=== PATIENT | male | born 1980 | race Two or more races ===

== ENCOUNTER 2018-06-26 17:29 | Emergency (ER) | payer SELFPAY ==
[~2018-06-26] VITALS: Ht 175.3 cm; Wt 81.6 kg
[2018-06-26 17:45] VITALS: BP 133/84
[2018-06-26] MEDS ORDERED: LIDOCAINE W/ EPINEPHRINE 2% INJ 20ML VIAL IJ ONE (19:30)
== END 2018-06-26 20:04 | disposition home or self-care (01) ==
LOC: ER 17:34
DX: L02.811 Cutaneous abscess of head [any part, except face] (principal)
CPT/HCPCS: 10060; 96372

== ENCOUNTER 2018-11-03 11:25 | Emergency (ER) | payer OTHER, MEDICAID ==
[~2018-11-03] VITALS: Ht 175.3 cm; Wt 81.6 kg
[2018-11-03 11:58] VITALS: BP 140/85
[2018-11-03] MEDS ORDERED: LIDOCAINE W/ EPINEPHRINE 2% INJ 20ML VIAL ONE (12:12)
[2018-11-03] MEDS ORDERED: LIDOCAINE W/ EPINEPHRINE 2% INJ 20ML VIAL IJ ONE (12:15)
[2018-11-03] MEDS ORDERED: cefTRIAXone SOD 1,000 MG VL IM ONE (12:45)
[2018-11-03] MEDS ORDERED: ACETAMINOPHEN/CODEINE#3 (300/30mg) TAB PO ONE (12:45)
== END 2018-11-03 13:21 | disposition home or self-care (01) ==
LOC: ER 11:25
DX: L02.811 Cutaneous abscess of head [any part, except face] (principal)
CPT/HCPCS: 10060; 96372; 99283; C1887; J0696

== ENCOUNTER 2019-04-01 04:11 | Emergency (ER) | payer OTHER, MEDICAID ==
[~2019-04-01] VITALS: Ht 175.3 cm; Wt 81.6 kg
[2019-04-01 05:35] LABS: Basophils # (auto) 0.1 uL; Basophils % (auto) 0.8 % (0.0-2.0); Eosinophils # (auto) 0.2 uL; Eosinophils % (auto) 2.6 % (0.0-7.0); Hematocrit 50.5 % (41.0-53.0); Hemoglobin 17.6 g/dL (13.5-17.5); Lymphocytes # (auto) 2.2 uL; Lymphocytes % (auto) 34.4 % (10.0-50.0); Mean Corpuscular Hemoglobin 32.1 pg (28.0-32.0); Mean Corpuscular Hgb Conc. 34.8 g/dL (32.0-36.0); Mean Corpuscular Volume 92.2 fL (80.0-100.0); Monocytes # (auto) 0.5 uL; Monocytes % (auto) 8.1 % (0.0-12.0); Neutrophils # (auto) 3.5 uL; Neutrophils % (auto) 54.1 % (37.0-80.0); Nucleated Red Blood Cells % 0.1 %; Platelet Count (auto) 233 10^3/uL (140-450); Red Blood Cells 5.47 10^6/uL (4.5-5.90); Red Cell Distribution Width 14.7 % (11.8-14.3); White Blood Cell 6.5 10^3/uL (4.4-10.8)
[2019-04-01 05:53] LABS: Anion Gap 7 (5-15); Blood Urea Nitrogen 9 mg/dL (7-18); Calcium 8.6 mg/dL (8.5-10.1); Carbon Dioxide 27 mmol/L (21-32); Chloride 109 mmol/L (98-107); Glucose 108 mg/dL (74-106); Potassium 3.8 mmol/L (3.5-5.1); Sodium 143 mmol/L (136-145)
[2019-04-01 05:55] LABS: BUN/Creatinine Ratio 10.1; GFR African American 123 mL/min; GFR Non-African American 102 mL/min
[2019-04-01 06:12] LABS: Alanine Aminotransferase 37 U/L (16-61); Alkaline Phosphatase 65 U/L (45-117); Aspartate Aminotransferase 30 U/L (15-37); Bilirubin, Total 0.2 mg/dL (0.2-1.0); Total Protein 7.4 g/dL (6.4-8.2)
[2019-04-01 07:55] VITALS: BP 127/86
[2019-04-01] MEDS ORDERED: SODIUM CHLORIDE 0.9% 1,000 ML IV ONE (08:00)
[2019-04-01] MEDS ORDERED: LORazepam 2MG/ML-1ML VIAL IV ONE (08:00)
[2019-04-01 09:41] LABS: Urine Bacteria FEW /hpf (None Seen); Urine Blood Negative /uL (Negative); Urine Mucus FEW (None Seen); Urine Specific Gravity 1.017 (1.001-1.035); Urine WBC <1 /hpf (0 - 3)
[2019-04-01 10:23] LABS: Amphetamine Screen, Urine NEGATIVE (NEGATIVE); Barbiturate Scree,Urine NEGATIVE (NEGATIVE); Benzodiazephine Screen, Urine NEGATIVE (NEGATIVE); Cannabinoid Screen, Urine POSITIVE (NEGATIVE); Cocaine Screen, Urine NEGATIVE (NEGATIVE); Opiate Scree,Urine NEGATIVE (NEGATIVE); Phencyclidine Screen, Urine NEGATIVE (NEGATIVE)
== END 2019-04-01 12:01 | disposition home or self-care (01) ==
LOC: EDBD 04:11 → ER 04:18
DX: F10.239 Alcohol dependence with withdrawal, unspecified (principal); F41.9 Anxiety disorder, unspecified; F12.10 Cannabis abuse, uncomplicated; F15.10 Other stimulant abuse, uncomplicated; Y90.9 Presence of alcohol in blood, level not specified
CPT/HCPCS: 36415; 80053; 80307; 80320; 81001; 83880; 84484; 85025; 93005; 96361; 96374; 99284; J2060; J7030

== ENCOUNTER → 2019-10-12 | Emergency (ER) | payer OTHER, MEDICAID ==
[~2019-10-12] VITALS: Ht 177.8 cm; Wt 84.8 kg
[2019-10-12 14:48] VITALS: BP 128/85
== END | disposition home or self-care (01) ==
LOC: ER 14:35
DX: S00.06XA Insect bite (nonvenomous) of scalp, initial encounter (principal); F17.210 Nicotine dependence, cigarettes, uncomplicated; W57.XXXA Bitten or stung by nonvenomous insect and other nonvenomous arthropods, initial encounter; Y93.89 Activity, other specified; Y92.89 Other specified places as the place of occurrence of the external cause; Y99.8 Other external cause status

== ENCOUNTER 2025-04-10 14:03 | Inpatient (IN) | payer MEDICARE, MEDICAID ==
[~2025-04-10] VITALS: Ht 170.2 cm; Wt 69.9 kg
--- NOTE | 2025-04-10 15:13 | ED.PDOC ---
GI ASSESSMENT HPI Comments 45-year-old male presents here with abdominal pain. He states it began 2 days ago reports positive vomiting diarrhea. Also reports, as it of cough cold runny nose. Denies any fevers. Patient is a very poor historian. Has significant mumbled speech unable to give very much history. He states it feels like his kidney stones. Points to his entire abdomen as area of the discomfort. Chief Complaint: Abdominal Pain Time Seen by MD: 15:11 Primary Care Provider: carlo Clayton Notes: Nurses Notes, Medications, Allergies Allergies: Coded Allergies: NO KNOWN ALLERGIES (Unverified , 06/26/18) Home Meds Reported Medications Bupropion Hcl (Bupropion Hcl Xl) 150 Mg Tab, 1 TAB PO QAM 04/10/25 Information Source: Patient Mode of Arrival: Ambulatory Timing: Days Duration: Since onset Prehospital treatment: None Vomitus: None Stool: Normal Severity: Moderate Recent: None Recent Hx of: None Pain Location: Diffuse Modifying Factors: Nothing Associated sign and symptoms: Abdominal Pain Past Medical History PAST MEDICAL HISTORY: Depression Surgical History: Denies all surgeries Family History Family History: Unknown Social History Smoker: Cigarettes, Less Than 1 Pack/Day Alcohol: Heavy Drugs: Marijuana, Methamphetamine Lives In: Home Constitutional: denies: chills, diaphoresis, fatigue, fever, malaise, sweats, weakness, others EENTM: denies: blurred vision, double vision, ear bleeding, ear discharge, ear drainage, ear pain, ear ringing, eye pain, eye redness, hearing loss, mouth pain, mouth swelling, nasal discharge, nose bleeding, nose congestion, nose pain, photophobia, tearing, throat pain, throat swelling, voice changes, others Respiratory: denies: cough, hemoptysis, orthopnea, SOB at rest, shortness of breath, SOB with excertion, stridor, wheezing, others Cardiovascular: denies: chest pain, dizzy spells, diaphoresis, Dyspnea on exertion, edema, irregular heart beat, left arm pain, lightheadedness, palpitations, PND, syncope, others Gastrointestinal: reports: abdominal pain; denies: abdomen distended, blood streaked bowels, constipated, diarrhea, dysphagia, difficulty swallowing, hematemesis, melena, nausea, poor appetite, poor fluid intake, rectal bleeding, rectal pain, vomiting, others Genitourinary: denies: burning, dysuria, flank pain, frequency, hematuria, incontinence, penile discharge, penile sore, pain, testicle pain, testicle swelling, urgency, others Neurological: denies: dizziness, fainting, headache, left sided numbness, left sided weakness, numbness, paresthesia, pre-existing deficit, right sided numbness, right sided weakness, seizure, speech problems, tingling, tremors, weakness, others Musculoskeletal: denies: back pain, gout, joint pain, joint swelling, muscle pain, muscle stiffness, neck pain, others Integumetry: denies: bruises, change in color, change in hair/nails, dryness, laceration, lesions, lumps, rash, wounds, others Allergic/Immunocompromised: denies: Difficulty Healing, Frequent Infections, Hives, Itching, others Hematologic/Lymphatic: denies: anemia, blood clots, easy bleeding, easy bruising, swollen glands, others Endocrine: denies: excessive hunger, excessive sweating, excessive thirst, excessive urination, flushing, intolerance to cold, intolerance to heat, unexplained weight gain, unexplained weight loss, others Psychiatric: denies: anxiety, bipolar disorder, depression, hopeless, panic disorder, schizophrenia, sleepless, suicidal, others All Other Systems: Reviewed and Negative Physical Exam Exam Comments Appears homeless, speaks and mumbled speech, easily agitated General Appearance: Mild Distress, Normal HEENT: Normal ENT Inspection, Pharynx Normal Neck: Full Range of Motion, Non-Tender, Normal, Normal Inspection Respiratory: Chest Non-Tender, Lungs Clear, No Accessory Muscle Use, No Respiratory Distress, Normal Breath Sounds Cardiovascular: No Edema, No Murmur, No Gallop, Normal Peripheral Pulses, Regular Rate/Rhythm Breast Exam: Deferred Gastrointestinal: No Organomegaly, No Pulsatile Mass, Normal Bowel Sounds, Soft, Other (Mild diffuse abdominal tenderness to palpation) Genitalia: Deferred Pelvic: Deferred Rectal: Deferred Extremities: No calf tenderness, Normal capillary refill, Normal inspection, Normal range of motion, Non-tender, No pedal edema Musculoskeletal : Apperance: Normal Neurologic: Alert, No Motor Deficits, Normal Mood, No Sensory Deficits, Speech Problem, Other (Easily agitated) Cerebellar Function: Normal Reflexes: Normal Skin: Dry, Normal Color, Warm Lymphatic: No Adenopathy Was a procedure done? Was a procedure done?: No GI differential Dx Differential Diagnosis: Bowel Obstruction, Gastritis/PUD, Gastroenteritis, Pancreatitis, Urinary Obstruction, UTI, Urolithiasis, Dehydration, Drug toxicity, Electrolyte Imbalance, Food Poisoning, Bacterial, Viral, Malnutrition, Ischemic Bowel, Kidney Stone X-Ray, Labs, Meds, VS Vital Signs Date Time Temp Pulse Resp B/P (MAP) Pulse Ox O2 Delivery O2 Flow Rate FiO2 04/10/25 14:10 98.8 80 18 145/90 99 98.8 Lab Test 04/10/25 17:04 04/10/25 15:07 Range/Units Lactic Acid Level 0.8 0.4-2.0 mmol/L White Blood Count 15.0 H 4.4-10.8 10^3/uL Red Blood Count 5.40 4.5-5.90 10^6/uL Hemoglobin 16.6 13.5-17.5 g/dL Hematocrit 48.7 41.0-53.0 % Mean Corpuscular Volume 90.2 80.0-100.0 fL Mean Corpuscular Hemoglobin 30.8 28.0-32.0 pg Mean Corpuscular Hemoglobin Concent 34.2 32.0-36.0 g/dL Red Cell Distribution Width 13.2 11.8-14.3 % Platelet Count 269 140-450 10^3/uL Mean Platelet Volume 9.1 6.9-10.8 fL Neutrophils (%) (Auto) 84.1 H 37.0-80.0 % Lymphocytes (%) (Auto) 7.1 L 10.0-50.0 % Monocytes (%) (Auto) 8.5 0.0-12.0 % Eosinophils (%) (Auto) 0.1 0.0-7.0 % Basophils (%) (Auto) 0.2 0.0-2.0 % Neutrophils # (Auto) 12.6 H 1.6-8.6 10 ^3/uL Lymphocytes # (Auto) 1.1 0.4-5.4 10 ^3/uL Monocytes # (Auto) 1.3 0-1.3 10 ^3/uL Eosinophils # (Auto) 0 0-0.8 10 ^3/uL Basophils # (Auto) 0 0-0.2 10 ^3/uL Nucleated Red Blood Cells 0.0 % Sodium Level 135 L 136-145 mmol/L Potassium Level 4.1 3.5-5.1 mmol/L Chloride Level 100 98-107 mmol/L Carbon Dioxide Level 26 20-31 mmol/L Anion Gap 9 5-15 Blood Urea Nitrogen 10 9-23 mg/dL Creatinine 0.87 0.700-1.30 mg/dL Glomerular Filtration Rate Calc 109 >90 mL/min BUN/Creatinine Ratio 11.5 10.0-20.0 Serum Glucose 122 H 74-106 mg/dL Calcium Level 9.4 8.7-10.4 mg/dL Total Bilirubin 1.2 H 0.2-1.0 mg/dL Aspartate Amino Transferase (AST) 23 13-40 U/L Alanine Aminotransferase (ALT) 21 7-40 U/L Alkaline Phosphatase 61 46-116 U/L Total Protein 7.7 5.7-8.2 g/dL Albumin 4.7 3.2-4.8 g/dL Lipase 23 12-53 U/L [place] [id number] Ph: [phone] DIAGNOSTIC IMAGING Diagnostic Imaging Report : [id number] Signed PATIENT: TAMARA CARTER ACCT: [id number] UNIT: [id number] : 1980 LOC: ER ROOM / BED: / AGE / SEX: 45 / M ADM STATUS: REG ER SERVICE [id number] ORDERING PHYSICIAN: EVELYN ECKERT MD PROCEDURE(s): ABPL - CT AB PEL WO CON-NO ORAL OR IV REASON: abd pain, ro kidney stone, ro sbo ORDER NUMBER(s): [id number], ACCESSION NUMBER(s): [id number] Exam: CT CT AB PEL WO CON-NO ORAL OR IV History: abd pain, ro kidney stone, ro sbo Comparison Study: None TECHNIQUE: Multidetector CT of the abdomen was performed from lung bases to pubic symphysis. Imaging was performed without IV contrast. Axial, coronal and sagittal multiplanar reformats were obtained from the axial data set by the technologist. Radiation Dose Information: CT Dose: CTDI volume is 7.52 mGy. Dose-length product is 469.11 mGy*cm FINDINGS: Evaluation of solid organs is limited due to lack of intravenous contrast use. Findings: Lung Bases: No acute or significant lung base finding. Normal heart size. No pleural or pericardial effusion. Liver: The liver is normal in size. No focal lesions. Gallbladder and Biliary Tree: Fluid around the gallbladder wall and mildly thickened gallbladder wall (5 mm). Spleen: Unremarkable Pancreas: The pancreas is grossly normal in appearance. Adrenal Glands: Unremarkable Kidneys: Punctate nonobstructing calculus right kidney Bladder: Grossly unremarkable for degree of distention. Bowel: The stomach is grossly normal in appearance. Small bowel and colon are normal in caliber and distribution. The appendix is not visualized; however, no secondary findings of acute appendicitis identified. Ascites: Absent Lymphadenopathy: No mesenteric, retroperitoneal or periportal lymphadenopathy. Abdominal Wall and Mesentery: Unremarkable. Vasculature: The visualized abdominal aorta is normal in size and caliber. Evaluation of abdominal and pelvic vessels is limited due to lack of intravenous contrast. Pelvic Organs: Unremarkable Musculoskeletal: No aggressive focal bony lesions, acute fractures or dislocation. Soft tissues: Unremarkable IMPRESSION: 1. Fluid and debris filled stomach. 2. No findings of bowel obstruction. Large stool burden throughout the colon 3. Punctate calculus right kidney no hydronephrosis 4. Thickened gallbladder wall with mildly distended gallbladder and fluid around the gallbladder. Gallbladder wall measures 5 mm. Consider gallbladder ultrasound for further evaluation. 5. 6-7 mm stool-filled rectum. Radiation optimization: All CT scans at this facility use at least one of these dose optimization techniques: automated exposure control mA and/or kV ad justment per patient size (includes targeted exams where dose is matched to clinical indication) or iterative reconstruction. ATED BY: GEORGE MOCK Jr., DO DICTATED DATE/TIME: 04/10/25 163 SIGNED BY: GEORGE MOCK Jr., SIGNED DATE/TIME: 04/10/25 1630 CC: 45-year-old male since here with abdominal pain. Patient is a very poor historian mumbles gets easily agitated with repeated questions, appears homeless. At this time patient points to his entire abdomen as the area pain. He has mild diffuse abdominal tenderness on my examination. It denies any alcohol or drug abuse however I reviewed his previous records he does have a history of polysubstance abuse. He states it feels like it is kidney stone. I have given him a urine cup. At this time I have ordered a CBC CMP, urinalysis as well as a CT abdomen pelvis for evaluation. For possible small bowel obstruction nephrolithiasis. I have written for some morphine Zofran and IV fluids for him. CBC has returned with a leukocytosis of 15, CMP demonstrates a elevated bilirubin of 1.2. Normal lipase. CT abdomen pelvis has returned with thickened gallbladder wall and fluid around the gallbladder. At this time I am concerned about cholecystitis. I discussed the case with Dr. Dougherty to see if this patient would be able to be taken care of at our hospital, he agreed we can admit here. At this time I have started the patient on Zosyn IV and surgical consult has been made to Dr. Chan. Hospitalist team has been contacted. Time of 1ST Reevaluation: 15:41 Reevaluation 1ST: Unchanged Patient Education/Counseling: Diagnosis, Treatment Family Education/Counseling: No Family Present SEPSIS Sepsis Screen Physician Orders Ct Ab Pel Wo Con-No Oral Or Iv (04/10/25 15:28) Urinalysis (04/10/25 15:28) Blood Culture (04/10/25 16:44) Sodium Chloride 0.9% (04/10/25 16:45) * Surgical Consult (04/10/25 ) Vital Signs Date Time Temp Pulse Resp B/P (MAP) Pulse Ox O2 Delivery O2 Flow Rate FiO2 04/10/25 14:10 98.8 80 18 145/90 99 98.8 Laboratory Tests Test 04/10/25 15:07 04/10/25 17:04 White Blood Count 15.0 10^3/uL (4.4-10.8) H Lactic Acid Level 0.8 mmol/L (0.4-2.0) Departure 1 Departure Time of Disposition: 16:47 Impression: Primary Impression: Cholecystitis Additional Impression: Leukocytosis Qualified Codes: D72.829 - Elevated white blood cell count, unspecified Disposition: 09 ADMITTED INPATIENT Condition: Fair Critical Care Note Critical Care Time?: No Stability Stability form required: No Heart Score Heart Score: Heart Score Response (Comments) Value History N/A 0 EKG N/A 0 Age N/A 0 Risk Factors N/A 0 Troponin N/A 0 Total 0 I personally scribed for EVELYN ECKERT MD ([email or web address]) on 04/10/25 at 15:13. Electronically submitted by Karen Snell ([email or web address]). I personally scribed for EVELYN ECKERT MD ([email or web address]) on 04/10/25 at 16:40. Electronically submitted by Karen Snell [email or web address]). EVELYN ECKERT MD Apr 10, 2025 15:13
[2025-04-10 15:29] LABS: Hematocrit 48.7 % (41.0-53.0); Hemoglobin 16.6 g/dL (13.5-17.5); Mean Corpuscular Hemoglobin 30.8 pg (28.0-32.0); Mean Corpuscular Volume 90.2 fL (80.0-100.0); Nucleated Red Blood Cells % 0.0 %
[2025-04-10 15:46] LABS: Alanine Aminotransferase 21 U/L (7-40); Albumin 4.7 g/dL (3.2-4.8); Alkaline Phosphatase 61 U/L (46-116); Anion Gap 9 (5-15); BUN/Creatinine Ratio 11.5 (10.0-20.0); Blood Urea Nitrogen 10 mg/dL (9-23); Calcium 9.4 mg/dL (8.7-10.4); Carbon Dioxide 26 mmol/L (20-31); Chloride 100 mmol/L (98-107); Lipase 23 U/L (12-53); Potassium 4.1 mmol/L (3.5-5.1); Total Protein 7.7 g/dL (5.7-8.2)
[2025-04-10 15:54] LABS: Bilirubin, Total 1.2 mg/dL (0.2-1.0); Glucose 122 mg/dL (74-106); Sodium 135 mmol/L (136-145)
--- NOTE | 2025-04-10 16:32 | DVH ---
Exam: CT CT AB PEL WO CON-NO ORAL OR IV History: abd pain, ro kidney stone, ro sbo Comparison Study: None TECHNIQUE: Multidetector CT of the abdomen was performed from lung bases to pubic symphysis. Imaging was performed without IV contrast. Axial, coronal and sagittal multiplanar reformats were obtained fr om the axial data set by the technologist. Radiation Dose Information: CT Dose: CTDI volume is 7.52 mGy. Dose-length product is 469.11 mGy*cm FINDINGS: Evaluation of solid organs is limited due to lack of intravenous contrast use. Findings: Lung Bases: No acute or significant lung base finding. Normal heart size. No pleural or pericardial effusion. Liver: The liver is normal in size. No focal lesions. Gallbladder and Biliary Tree: Fluid around the gallbladder wall and mildly thickened gallbladder wall (5 mm). Spleen: Unremarkable Pancreas: The pancreas is grossly normal in appearance. Adrenal Glands: Unremarkable Kidneys: Punctate nonobstructing calculus right kidney Bladder: Grossly unremarkable for degree of distention. Bowel: The stomach is grossly normal in appearance. Small bowel and colon are normal in caliber and d istribution. The appendix is not visualized; however, no secondary findings of acute appendicitis id entified. Ascites: Absent Lymphadenopathy: No mesenteric, retroperitoneal or periportal lymphadenopathy. Abdominal Wall and Mesentery: Unremarkable. Vasculature: The visualized abdominal aorta is normal in size and caliber. Evaluation of abdominal a nd pelvic vessels is limited due to lack of intravenous contrast. Pelvic Organs: Unremarkable Musculoskeletal: No aggressive focal bony lesions, acute fractures or dislocation. Soft tissues: Unremarkable IMPRESSION: 1. Fluid and debris filled stomach. 2. No findings of bowel obstruction. Large stool burden throughout the colon 3. Punctate calculus right kidney no hydronephrosis 4. Thickened gallbladder wall with mildly distended gallbladder and fluid around the gallbladder. Gal lbladder wall measures 5 mm. Consider gallbladder ultrasound for further evaluation. 5. 6-7 mm stool-filled rectum. Radiation optimization: All CT scans at this facility use at least one of these dose optimization te chniques: automated exposure control mA and/or kV adjustment per patient size (includes targeted exa ms where dose is matched to clinical indication) or iterative reconstruction.
[2025-04-10] MEDS ORDERED: PIPERACILLIN-TAZOB 3.375GM 100 ML IV ONE (16:45)
[2025-04-10] MEDS ORDERED: ACETAMINOPHEN 325 MG TAB PO PRN (17:30)
[2025-04-10] MEDS ORDERED: BUPR150T18 PO (17:31)
--- NOTE | 2025-04-10 17:38 | DVHHP2 ---
History of Present Illness Reason for Visit: Abdominal pain History of Present Illness A 45-year-old male with past medical history of depression, tobacco use, amphetamine use, and homelessness presents to the ED with abdominal pain. Patient reports abdominal pain associated with vomiting and diarrhea for the past two days. He states that the pain feels similar to his prior episodes with gallstones. He is alert and oriented but note that to be a somewhat poor historian. He denies chest pain, hematemesis, or melena. In the ER, CTA abdomen shows large stool burden throughout the colon, thickened gallbladder wall with mild distention, pericholecystic fluid, and gallbladder wall thickness measuring 5 mm. Past Medical History As stated in HPI Past Surgical History Denies Family History Reviewed, non-contributory to the management of this case. Past Social History Homeless Tobacco and amphetamine use Review of Systems Constitutional: No: Fever, Chills, Sweats, Weakness, Malaise, Other Eyes: No: Pain, Vision change, Conjunctivae inflammation, Eyelid inflammation, Other, Redness ENT: No: Ear pain, Ear discharge, Nose pain, Nose discharge, Nose congestion, Mouth pain, Mouth swelling, Throat pain, Throat swelling, Other Respiratory: No: Cough, Dry, Shortness of breath, SOB with excertion, Wheezing, Hemoptysis, Pleuritic Pain, Sputum, Wheezing, Other Cardiovascular: No: Chest Pain, Palpitations, Orthopnea, Paroxysmal Noc. Dyspnea, Edema, Lt Headedness, Other Gastrointestinal: Nausea, Vomiting, Abdominal Pain, Diarrhea; No: Constipation, Melena, Hematochezia, Other Genitourinary: No Dysuria, No Frequency, No Incontinence, No Hematuria, No Retention, No Other Musculoskeletal: No: other, neck pain, shoulder pain, arm pain, back pain, hand pain, leg pain, foot pain Skin: No: Rash, Lesions, Jaundice, Bruising, Other Allergies: Coded Allergies: NO KNOWN ALLERGIES (Unverified , 06/26/18) Exam Vital Signs Vital Signs Date Time Temp Pulse Resp B/P (MAP) Pulse Ox O2 Delivery O2 Flow Rate FiO2 04/10/25 14:10 98.8 80 18 145/90 99 98.8 General Appearance: Alert, Oriented X3, mild distress HEENT: Atraumatic, PERRLA Respiratory: Clear to auscultation, Normal air movement Cardiovascular: Regular rate, Normal S1, Normal S2 Abdominal: Normal bowel sounds, Soft, Other (Soft, diffusely tender in right upper quadrant, mild guarding, no rebound) Extremities: No clubbing, No cyanosis, No edema Skin: No rashes, No breakdown Neuro: Normal speech Psych/Mental Status: Mental status NL Labs/Xrays Labs Test 04/10/25 17:04 04/10/25 15:07 Range/Units White Blood Count 15.0 H 4.4-10.8 10^3/uL Red Blood Count 5.40 4.5-5.90 10^6/uL Hemoglobin 16.6 13.5-17.5 g/dL Hematocrit 48.7 41.0-53.0 % Mean Corpuscular Volume 90.2 80.0-100.0 fL Mean Corpuscular Hemoglobin 30.8 28.0-32.0 pg Mean Corpuscular Hemoglobin Concent 34.2 32.0-36.0 g/dL Red Cell Distribution Width 13.2 11.8-14.3 % Platelet Count 269 140-450 10^3/uL Mean Platelet Volume 9.1 6.9-10.8 fL Neutrophils (%) (Auto) 84.1 H 37.0-80.0 % Lymphocytes (%) (Auto) 7.1 L 10.0-50.0 % Monocytes (%) (Auto) 8.5 0.0-12.0 % Eosinophils (%) (Auto) 0.1 0.0-7.0 % Basophils (%) (Auto) 0.2 0.0-2.0 % Neutrophils # (Auto) 12.6 H 1.6-8.6 10 ^3/uL Lymphocytes # (Auto) 1.1 0.4-5.4 10 ^3/uL Monocytes # (Auto) 1.3 0-1.3 10 ^3/uL Eosinophils # (Auto) 0 0-0.8 10 ^3/uL Basophils # (Auto) 0 0-0.2 10 ^3/uL Nucleated Red Blood Cells 0.0 % Sodium Level 135 L 136-145 mmol/L Potassium Level 4.1 3.5-5.1 mmol/L Chloride Level 100 98-107 mmol/L Carbon Dioxide Level 26 20-31 mmol/L Anion Gap 9 5-15 Blood Urea Nitrogen 10 9-23 mg/dL Creatinine 0.87 0.700-1.30 mg/dL Glomerular Filtration Rate Calc 109 >90 mL/min BUN/Creatinine Ratio 11.5 10.0-20.0 Serum Glucose 122 H 74-106 mg/dL Calcium Level 9.4 8.7-10.4 mg/dL Total Bilirubin 1.2 H 0.2-1.0 mg/dL Aspartate Amino Transferase (AST) 23 13-40 U/L Alanine Aminotransferase (ALT) 21 7-40 U/L Alkaline Phosphatase 61 46-116 U/L Total Protein 7.7 5.7-8.2 g/dL Albumin 4.7 3.2-4.8 g/dL Lipase 23 12-53 U/L PROCEDURE(s): ABPL - CT AB PEL WO CON-NO ORAL OR IV REASON: abd pain, ro kidney stone, ro sbo ORDER NUMBER(s): [id number], ACCESSION NUMBER(s): [id number] Exam: CT CT AB PEL WO CON-NO ORAL OR IV History: abd pain, ro kidney stone, ro sbo Comparison Study: None TECHNIQUE: Multidetector CT of the abdomen was performed from lung bases to pubi c symphysis. Imaging was performed without IV contrast. Axial, coronal and sagittal multiplanar reformats were obtained from the axial data set by the technologist. Radiation Dose Information: CT Dose: CTDI volume is 7.52 mGy. Dose-length product is 469.11 mGy*cm FINDINGS: Evaluation of solid organs is limited due to lack of intravenous contrast use. Findings: Lung Bases: No acute or significant lung base finding. Normal heart size. No pleural or pericardial effusion. Liver: The liver is normal in size. No focal lesions. Gallbladder and Biliary Tree: Fluid around the gallbladder wall and mildly thickened gallbladder wall (5 mm). Spleen: Unremarkable Pancreas: The pancreas is grossly normal in appearance. Adrenal Glands: Unremarkable Kidneys: Punctate nonobstructing calculus right kidney Bladder: Grossly unremarkable for degree of distention. Bowel: The stomach is grossly normal in appearance. Small bowel and colon are normal in caliber and distribution. The appendix is not visualized; however, no secondary findings of acute appendicitis identified. Ascites: Absent Lymphadenopathy: No mesenteric, retroperitoneal or periportal lymphadenopathy. Abdominal Wall and Mesentery: Unremarkable. Vasculature: The visualized abdominal aorta is normal in size and caliber. Evaluation of abdominal and pelvic vessels is limited due to lack of intravenous contrast. Pelvic Organs: Unremarkable Musculoskeletal: No aggressive focal bony lesions, acute fractures or dislocation. Soft tissues: Unremarkable IMPRESSION: 1. Fluid and debris filled stomach. 2. No findings of bowel obstruction. Large stool burden throughout the colon 3. Punctate calculus right kidney no hydronephrosis 4. Thickened gallbladder wall with mildly distended gallbladder and fluid around the gallbladder. Gallbladder wall measures 5 mm. Consider gallbladder ultrasound for further evaluation. 5. 6-7 mm stool-filled rectum. SEPSIS Sepsis Screen Date sepsis recognized/suspect: Apr 10, 2025 Time Sepsis recognized/suspect: 0 Recent Procedure: No On Antibiotic Therapy: No Respiratory Rate >20: No Heart Rate >90: No Temp<36 C (96.8 F) or >38.3 C: No SBP <90 or MAP <65 mmHG: No New Acute Mental Status Change: No Is the patient on CPAP, BIPAP,: No Physician Orders Ct Ab Pel Wo Con-No Oral Or Iv (04/10/25 15:28) Urinalysis (04/10/25 15:28) Piperacillin-Tazob 3.375gm (Zosyn 3.375g (04/10/25 16:45) Blood Culture (04/10/25 16:44) Lactic Acid W/ Reflex Order (04/10/25 16:44) Sodium Chloride 0.9% (04/10/25 16:45) * Surgical Consult (04/10/25 ) Vital Signs Date Time Temp Pulse Resp B/P (MAP) Pulse Ox O2 Delivery O2 Flow Rate FiO2 04/10/25 14:10 98.8 80 18 145/90 99 98.8 Laboratory Tests Test 04/10/25 15:07 04/10/25 17:04 White Blood Count 15.0 10^3/uL (4.4-10.8) H Lactic Acid Level Pending Assessment/Plan Assessment/Plan # rule out acute cholecystitis # acute abdominal pain likely due to large to burden throughout the colon # diarrhea * Admit to medical surgical unit * Ultrasound gallbladder ordered * NPO * IV fluid * Rocephin, Zosyn # Polysubstance abuse * Counseled # hx of Depression * continue # homelessness * consider social work coordinator consult Plan of care discussed with patient Plan discussed with: Patient Date of Service: Apr 10, 2025 Billing Provider: GINO REESE Common Visit Codes: [id number] INP/OBS CARE (MOD) GINO REESE Apr 10, 2025 17:38
--- NOTE | 2025-04-10 18:19 | DVH ---
INDICATION: rule out cholecystitis TECHNIQUE: Multiple real-time sonographic images of the abdomen were obtained. COMPARISON: None FINDINGS: Hepatic parenchyma is echogenic consistent with steatosis. The liver measures 15.5 cm. No intrahepatic biliary ductal dilatation is noted. The gallbladder wall measures 0.43 cm and is thickened. Gallstones and sludge in the gallbladder. The common duct measures 0.42 cm and is unremarkable. No pericholecystic fluid is noted. Negative so nographic Cabrera's sign The right kidney measures 10.8 cm. No hydronephrosis. The pancreas is not well visualized due to obscuration from bowel gas. IMPRESSION: 1. 15.5 cm liver with increased hepatic echogenicity suggesting steatosis. 2. Gallstones sludge are noted in the gallbladder with thickened gallbladder wall 0.43 mm
[2025-04-10] MEDS: ONDANSETRON HCL 4 MG/2 ML VIAL IV ONE (20:36)
[2025-04-10] MEDS: MORPHINE SULFATE INJ 2 MG/ml SYRG IV PRN (20:37)
[2025-04-10] MEDS: PIPERACILLIN-TAZOB 3.375GM 100 ML IV SCH (20:38)
[2025-04-10] MEDS: SODIUM CHLORIDE 0.9% 1,000 ML IV ONE (20:38)
[2025-04-10] MEDS: MORPHINE SULFATE 4 MG/ML SYR/VIAL IV ONE (20:38)
[2025-04-10] MEDS: SODIUM CHLORIDE 0.9% 2,000 ML IV ONE (22:46)
[2025-04-10] MEDS: SODIUM CHLORIDE 0.9% 1,000 ML IV SCH (22:47)
[2025-04-11] VITALS (7 sets, daily range): BP systolic 122–137; BP diastolic 68–94; PULSE 61–83; RESP 15–18; TEMP 99–100.9; O2SAT 94–100
[2025-04-11] MEDS: PIPERACILLIN-TAZOB 3.375GM 100 ML IV SCH (02:26)
[2025-04-11 05:53] LABS: Hematocrit 47.8 % (41.0-53.0); Hemoglobin 16.5 g/dL (13.5-17.5); Mean Corpuscular Hemoglobin 31.3 pg (28.0-32.0); Mean Corpuscular Volume 90.5 fL (80.0-100.0); Nucleated Red Blood Cells % 0.0 %
[2025-04-11 06:29] LABS: Urine Protein, UAD Negative (Negative)
[2025-04-11 06:39] LABS: Alanine Aminotransferase 18 U/L (7-40); Albumin 4.3 g/dL (3.2-4.8); Alkaline Phosphatase 60 U/L (46-116); Anion Gap 11 (5-15); BUN/Creatinine Ratio 10.0 (10.0-20.0); Blood Urea Nitrogen 9 mg/dL (9-23); Calcium 9.1 mg/dL (8.7-10.4); Carbon Dioxide 24 mmol/L (20-31); Chloride 100 mmol/L (98-107); Potassium 4.2 mmol/L (3.5-5.1); Total Protein 7.2 g/dL (5.7-8.2)
[2025-04-11 06:41] LABS: Bilirubin, Total 1.6 mg/dL (0.2-1.0); Glucose 115 mg/dL (74-106); Sodium 135 mmol/L (136-145)
[2025-04-11 06:43] LABS: Cannabinoid Screen, Urine Neg (NEGATIVE); Opiate Scree,Urine Neg (NEGATIVE)
[2025-04-11 06:47] LABS: Amphetamine Screen, Urine Pos (NEGATIVE); Barbiturate Scree,Urine Neg (NEGATIVE); Benzodiazephine Screen, Urine Neg (NEGATIVE); Cocaine Screen, Urine Neg (NEGATIVE); Phencyclidine Screen, Urine Neg (NEGATIVE)
[2025-04-11 11:18] LABS: Hepatitis B Surface Antigen Negative (Negative); Hepatitis C Antibody Negative (Negative)
--- NOTE | 2025-04-11 11:55 | DVHPN2 ---
Subjective The patient seen and examined at bedside. Still nausea/and abdominal pain. Reviewed: Care Plan, H&P, Labs, Medications, Previous Orders, Radiology Changes from previous H/P or p: No Changes Eyes: No Pain, No Vision change, No Conjunctivae inflammation, No Eyelid inflammation, No Other, No Redness ENT: No Ear pain, No Ear discharge, No Nose pain, No Nose discharge, No Nose congestion, No Mouth pain, No Mouth swelling, No Throat pain, No Throat swelling, No Other Cardiovascular: No Chest Pain, No Palpitations, No Orthopnea, No Paroxysmal Noc. Dyspnea, No Edema, No Lt Headedness, No Other Respiratory: No Cough, No Dry, No Shortness of breath, No SOB with excertion, No Wheezing, No Hemoptysis, No Pleuritic Pain, No Sputum, No Other Gastrointestinal: Nausea, Vomiting, Abdominal Pain, Diarrhea; No Constipation, No Melena, No Hematochezia, No Other Genitourinary: No Dysuria, No Frequency, No Incontinence, No Hematuria, No Retention, No Other Musculoskeletal: No other, No neck pain, No shoulder pain, No arm pain, No back pain, No hand pain, No leg pain, No foot pain Skin: No Rash, No Lesions, No Jaundice, No Bruising, No Other Objective Vitals Vital Signs Date Time Temp Pulse Resp B/P (MAP) Pulse Ox O2 Delivery O2 Flow Rate FiO2 04/11/25 09:08 79 18 133/78 04/11/25 09:00 100.9 94 100.9 04/11/25 02:03 Room Air* 0 21 Intake/Output Intake and Output 04/11/25 07:00 Intake Total 0 ml Balance 0 ml Intake Oral 0 ml General Appearance: Alert, Oriented X3, Cooperative, No acute distress HEENT: Atraumatic, PERRLA, EOMI, Mucous membr. moist/pink Neck: Supple Lungs: Clear to auscultation, Normal air movement Cardiovascular: Regular rate, Normal S1, Normal S2, No murmurs, Gallops, Rubs Abdomen: Normal bowel sounds, Soft, No tenderness Neuro: Cranial nerves 3-12 NL Psych/Mental Status: Mental status NL Medications Current Medications Medications Dose Ordered Sig/Lorraine Route Start Time Stop Time Status Last Admin Dose Admin Ceftriaxone Sodium 50 ml @ 100 mls/hr DAILY@09 IV 04/10/25 17:30 Hold Sodium Chloride 1,000 ml @ 100 mls/hr Q10H IV 04/10/25 17:30 04/10/25 22:47 100 MLS/HR Acetaminophen/ Hydrocodone Bitart 1 tab Q4HP PRN PO 04/10/25 17:30 Ondansetron HCl 4 mg Q4HP PRN IV 04/10/25 17:30 Acetaminophen 650 mg Q6HP PRN PO 04/10/25 17:30 Morphine Sulfate 2 mg Q4HPRN PRN IV 04/10/25 17:30 04/11/25 09:08 2 MG Piperacillin Sod/ Tazobactam Sod 100 ml @ 25 mls/hr Q6HR IV 04/11/25 02:30 04/11/25 08:59 25 MLS/HR Laboratory Results Laboratory Tests 04/11/25 04:54 Chemistry Test 04/10/25 15:07 04/11/25 04:54 Albumin 4.7 g/dL (3.2-4.8) 4.3 g/dL (3.2-4.8) Calcium Level 9.4 mg/dL (8.7-10.4) 9.1 mg/dL (8.7-10.4) Total Protein 7.7 g/dL (5.7-8.2) 7.2 g/dL (5.7-8.2) Lipid panel Test 04/10/25 15:07 Lipase 23 U/L (12-53) LFT Test 04/10/25 15:07 04/11/25 04:54 Alanine Aminotransferase (ALT) 21 U/L (7-40) 18 U/L (7-40) Alkaline Phosphatase 61 U/L (46-116) 60 U/L (46-116) Aspartate Amino Transferase (AST) 23 U/L (13-40) 19 U/L (13-40) Total Bilirubin 1.2 mg/dL (0.2-1.0) H 1.6 mg/dL (0.2-1.0) H Urinalysis Test 04/11/25 06:00 Urine Color Light-yellow (Yellow) Urine Clarity Clear (Clear) Urine pH 6.5 (5.0-9.0) Urine Specific [place] 1.016 (1.001-1.035) Urine Protein Negative (Negative) Urine Ketones Trace (Negative) Urine Blood Negative /uL (Negative) Urine Nitrite Negative (Negative) Urine Bilirubin Negative (Negative) Urine Urobilinogen Normal mg/dL (Negative) Urine Leukocyte Esterase Negative /uL (Negative) Urine RBC 2 /hpf (0 - 3) Urine Microscopic WBC 1 /HPF (0-3) Urine Squamous Epithelial Cells Few /hpf (<5) Urine Bacteria None seen /hpf (None Seen) Urine Glucose Normal mg/dL (Normal) Labs and/or images reviewed: Labs reviewed by me Assessment/Plan Assessment/Plan # rule out acute cholecystitis # acute abdominal pain likely due to large to burden throughout the colon # diarrhea * Ultrasound gallbladder ordered * NPO * IV fluid * Rocephin, Zosyn # Polysubstance abuse * Counseled # hx of Depression * continue # homelessness * consider social work therapist consult Plan discussed with: Patient Date of Service: Apr 11, 2025 Billing Provider: FABIO VALENTIN MD Common Visit Codes: [id number] INP/OBS CARE(HIGH) FABIO VALENTIN MD Apr 11, 2025 11:55
[2025-04-11] MEDS: ACETAMINOPHEN IV 1000 MG/100ML (10MG/ML) IV ONE (17:15)
[2025-04-11 17:52] LABS: INR 1.16 (0.9-1.15); Partial Thromboplastin Time 33.7 SEC (24.5-34.5); Prothrombin Time 12.1 sec (9.3-11.8)
[2025-04-12] VITALS (8 sets, daily range): BP systolic 116–129; BP diastolic 73–89; PULSE 78–96; RESP 17–18; TEMP 97.6–98.8; O2SAT 95–97
[2025-04-12] MEDS: HYDROcodone-ACET 5/325MG TAB PO PRN (05:47)
[2025-04-12] MEDS: SUCCINYLCHOLINE CHLORIDE 20 MG/ML 10ML VIAL IV ONE (06:49)
[2025-04-12] MEDS: ROCURONIUM 10MG/ML 10ML VIAL IV ONE (06:49)
[2025-04-12] MEDS ORDERED: SODIUM CHLORIDE LOCK 10 ML ONE (07:03)
[2025-04-12] MEDS ORDERED: PROPOFOL 10 MG/ML 20 ML IV ONE (07:03)
[2025-04-12] MEDS ORDERED: KETAMINE 50mg/ML 1ml syringe ONE (07:03)
[2025-04-12] MEDS ORDERED: ONDANSETRON HCL 4 MG/2 ML VIAL ONE (07:03)
[2025-04-12] MEDS ORDERED: LIDOCAINE 1% INJ PF 5ML AMP ONE (07:03)
[2025-04-12] MEDS ORDERED: MIDAZOLAM HCL 2MG/2ML 2ml VIAL (1mg/ml) ONE (07:03)
[2025-04-12] MEDS ORDERED: fentaNYL CITRATE 100 MCG/2 ML VL ONE (07:03)
[2025-04-12] MEDS ORDERED: LIDOCAINE 2% TOPICAL JELLY 5 ML URJT TOP ONE (07:03)
[2025-04-12] MEDS ORDERED: HYDROmorphone HCL 2 MG/ML VL/or syr ONE (07:03)
[2025-04-12] MEDS: BUPIVACAINE W/ EPINEPH 0.5% MPF 30ML VIAL IJ ONE (07:05)
[2025-04-12] MEDS: KETOROLAC TROMETH 30 MG/ML 1ML VIAL IV ONE (07:15)
[2025-04-12] MEDS ORDERED: HYDROmorphone HCL 2 MG/ML VL/or syr IV PRN ×2 (07:15)
[2025-04-12] MEDS ORDERED: MORPHINE SULFATE INJ 2 MG/ml SYRG IV PRN (07:15)
[2025-04-12] MEDS ORDERED: MORPHINE SULFATE 4 MG/ML SYR/VIAL IV PRN (07:15)
[2025-04-12] MEDS ORDERED: METOCLOPRAMIDE HCL 5MG/ml INJ 2ml VIAL IV PRN (07:15)
--- NOTE | 2025-04-12 08:31 | DVH ---
Procedure: NM NM HIDA SCAN Exam Date: 04/11/2025 02:47 PM Clinical History: poss cholecystitis Comparison Study: US GALLBLADDER on DOS: 04/10/25 Nuclear Medicine Hepatobiliary Scan. Technique: Following the intravenous administration of 6 mCi of technetium 99m labeled Choletec multiple planar abdominal planar images were obtained in anterior projection in 5 minute intervals for45 minutes . Ri ght lateral images were obtained at 45 minutes after injection. Findings: The liver appears grossly normal in size. There is no abnormal persistence of the cardiac or blood po ol activity. There is excretion of activity into the small bowel. Gallbladder not visualized Impression: Gallbladder not visualized consistent with acute cholecystitis.
--- NOTE | 2025-04-12 11:42 | DVHPN2 ---
Subjective The patient seen and examined at bedside. Still nausea/and abdominal pain. Reviewed: Care Plan, H&P, Labs, Medications, Previous Orders, Radiology Changes from previous H/P or p: No Changes Eyes: No Pain, No Vision change, No Conjunctivae inflammation, No Eyelid inflammation, No Other, No Redness ENT: No Ear pain, No Ear discharge, No Nose pain, No Nose discharge, No Nose congestion, No Mouth pain, No Mouth swelling, No Throat pain, No Throat swelling, No Other Cardiovascular: No Chest Pain, No Palpitations, No Orthopnea, No Paroxysmal Noc. Dyspnea, No Edema, No Lt Headedness, No Other Respiratory: No Cough, No Dry, No Shortness of breath, No SOB with excertion, No Wheezing, No Hemoptysis, No Pleuritic Pain, No Sputum, No Other Gastrointestinal: Nausea, Vomiting, Abdominal Pain, Diarrhea; No Constipation, No Melena, No Hematochezia, No Other Genitourinary: No Dysuria, No Frequency, No Incontinence, No Hematuria, No Retention, No Other Musculoskeletal: No other, No neck pain, No shoulder pain, No arm pain, No back pain, No hand pain, No leg pain, No foot pain Skin: No Rash, No Lesions, No Jaundice, No Bruising, No Other Objective Vitals Vital Signs Date Time Temp Pulse Resp B/P (MAP) Pulse Ox O2 Delivery O2 Flow Rate FiO2 04/12/25 09:00 98.8 96 18 116/81 (93) 97 98.8 04/11/25 02:03 Room Air* 0 21 Intake/Output Intake and Output 04/12/25 07:00 Intake Total 200 ml Output Total 400 ml Balance -200 ml Intake Oral 0 ml IV Total 200 ml Output Urine Total 400 ml # Voids 2 General Appearance: Alert, Oriented X3, Cooperative, No acute distress HEENT: Atraumatic, PERRLA, EOMI, Mucous membr. moist/pink Neck: Supple Lungs: Clear to auscultation, Normal air movement Cardiovascular: Regular rate, Normal S1, Normal S2, No murmurs, Gallops, Rubs Abdomen: Normal bowel sounds, Soft, No tenderness Neuro: Cranial nerves 3-12 NL Psych/Mental Status: Mental status NL Medications Current Medications Medications Dose Ordered Sig/Lorraine Route Start Time Stop Time Status Last Admin Dose Admin Ceftriaxone Sodium 50 ml @ 100 mls/hr DAILY@09 IV 04/10/25 17:30 Hold Sodium Chloride 1,000 ml @ 100 mls/hr Q10H IV 04/10/25 17:30 04/11/25 13:36 100 MLS/HR Acetaminophen/ Hydrocodone Bitart 1 tab Q4HP PRN PO 04/10/25 17:30 04/12/25 05:47 1 TAB Ondansetron HCl 4 mg Q4HP PRN IV 04/10/25 17:30 Acetaminophen 650 mg Q6HP PRN PO 04/10/25 17:30 Morphine Sulfate 2 mg Q4HPRN PRN IV 04/10/25 17:30 04/12/25 01:23 2 MG Piperacillin Sod/ Tazobactam Sod 100 ml @ 25 mls/hr Q6HR IV 04/11/25 02:30 04/12/25 05:47 25 MLS/HR Laboratory Results Laboratory Tests 04/11/25 04:54 Coagulation Test 04/11/25 17:00 Prothrombin Time 12.1 sec (9.3-11.8) H Prothrombin Time INR 1.16 (0.9-1.15) H Activated Partial Thromboplast Time 33.7 SEC (24.5-34.5) Urinalysis Test 04/11/25 06:00 Urine Color Light-yellow (Yellow) Urine Clarity Clear (Clear) Urine pH 6.5 (5.0-9.0) Urine Specific [place] 1.016 (1.001-1.035) Urine Protein Negative (Negative) Urine Ketones Trace (Negative) Urine Blood Negative /uL (Negative) Urine Nitrite Negative (Negative) Urine Bilirubin Negative (Negative) Urine Urobilinogen Normal mg/dL (Negative) Urine Leukocyte Esterase Negative /uL (Negative) Urine RBC 2 /hpf (0 - 3) Urine Microscopic WBC 1 /HPF (0-3) Urine Squamous Epithelial Cells Few /hpf (<5) Urine Bacteria None seen /hpf (None Seen) Urine Glucose Normal mg/dL (Normal) Microbiology Microbiology Date/Time Source Procedure Growth Status 04/10/25 17:04 Blood Blood Culture - Preliminary NO GROWTH AFTER 24 HOURS OF INCUBATION. Resulted Labs and/or images reviewed: Labs reviewed by me Assessment/Plan Assessment/Plan # acute cholecystitis # acute abdominal pain likely due to large to burden throughout the colon # diarrhea * Ultrasound gallbladder ordered * NPO * IV fluid * Rocephin, Zosyn # Polysubstance abuse * Counseled # hx of Depression * continue # homelessness * consider high school social studies tutor consult * Continuing current management. Waiting for surgeon. Hopefully patient had surgery today. This medical document was created using an electronic medical record system with [employer] direct computerized dictation system. Although this document has been carefully reviewed, there may still be some phonetic and typographical errors. These areas are purely typographical due to imperfections of the software programs, and do not reflect any compromise in the patient's medical care. Plan discussed with: Patient Date of Service: Apr 12, 2025 Billing Provider: FABIO VALENTIN MD Common Visit Codes: [id number] INP/OBS CARE(HIGH) FABIO VALENTIN MD Apr 12, 2025 11:42
--- NOTE | 2025-04-12 14:36 | DVHINCON2 ---
Consultation - Surgical Date Seen: Apr 12, 2025 Referring Physician Reason for Consultation Acute cholecystitis History of Present Illness History of Present Illness 45 yo M who presented yesterday 04/11 to the ED with RUQ, that is associated with nausea and vomiting. Pain started two days ago. States that he had an episode like this, several yrs ago while in [place]. At that time he was admitted to the hospital and an endoscopy was done. Pt is unclear on the reasons for the endoscopy. Pt denies: fevers, chills, acholic stools or darkening of urine. Last took meth 2 days ago. Currently NPO. Denies any chronic medications. Past Medical/Surgical History Past Medical/Surgical History Endoscopy for unclear reason Family and Social History Family and Social History Meth and Marijuna Alcohol occasional TOB daily, several cigs Allergies and medications Allergies: Coded Allergies: NO KNOWN ALLERGIES (Unverified , 06/26/18) Home Meds Reported Medications Bupropion Hcl (Bupropion Hcl Xl) 150 Mg Tab, 1 TAB PO QAM 04/10/25 Review of systems Review of Systems: Not Done Examination Vital signs Vital Signs Date Time Temp Pulse Resp B/P (MAP) Pulse Ox O2 Delivery O2 Flow Rate FiO2 04/12/25 13:12 96 18 121/83 04/12/25 09:00 98.8 97 98.8 04/12/25 08:00 Room Air* 0 21 Medications Current Medications Medications (Trade) Dose Ordered Sig/Lorraine Route PRN Reason Start Time Stop Time Status Last Admin Metoclopramide HCl (Reglan Injection) 10 mg ONCE PRN IV NAUSEA / VOMITING 04/12/25 07:15 04/12/25 07:44 DC Hydromorphone HCl (Dilaudid Injection) 0.5 mg Q10M PRN IV SEVERE PAIN (7-10 PAIN SCALE) 04/12/25 07:15 04/12/25 07:56 DC Morphine Sulfate 2 mg Q4H PRN IV BREAKTHRU PAIN SCALE 7-10 04/12/25 07:15 04/12/25 11:16 DC Hydromorphone HCl (Dilaudid Injection) 0.25 mg Q10M PRN IV MODERATE PAIN (4-6 PAIN SCALE) 04/12/25 07:15 04/12/25 07:46 DC Morphine Sulfate 1 mg Q30M PRN IV SEVERE PAIN (7-10 PAIN SCALE) 04/12/25 07:15 04/12/25 09:16 DC Laboratory Labs Test 04/11/25 17:00 04/11/25 06:00 04/11/25 04:54 04/10/25 17:04 Range/Units Prothrombin Time 12.1 H 9.3-11.8 sec Prothrombin Time INR 1.16 H 0.9-1.15 Activated Partial Thromboplast Time 33.7 24.5-34.5 SEC Urine Color Light-yellow Yellow Urine Clarity Clear Clear Urine pH 6.5 5.0-9.0 Urine Specific [place] 1.016 1.001-1.035 Urine Protein Negative Negative Urine Ketones Trace Negative Urine Blood Negative Negative /uL Urine Nitrite Negative Negative Urine Bilirubin Negative Negative Urine Urobilinogen Normal Negative mg/dL Urine Leukocyte Esterase Negative Negative /uL Urine RBC 2 0 - 3 /hpf Urine Microscopic WBC 1 0-3 /HPF Urine Squamous Epithelial Cells Few <5 /hpf Urine Bacteria None seen None Seen /hpf Urine Glucose Normal Normal mg/dL Urine Opiates Screen Neg NEGATIVE Urine Fentanyl Screen Neg NEGATIVE Urine Barbiturates Screen Neg NEGATIVE Urine Phencyclidine Screen Neg NEGATIVE Urine Amphetamines Screen Pos NEGATIVE Urine Benzodiazepines Screen Neg NEGATIVE Urine Cocaine Screen Neg NEGATIVE Urine Cannabinoids Screen Neg NEGATIVE White Blood Count 18.2 H 4.4-10.8 10^3/uL Red Blood Count 5.28 4.5-5.90 10^6/uL Hemoglobin 16.5 13.5-17.5 g/dL Hematocrit 47.8 41.0-53.0 % Mean Corpuscular Volume 90.5 80.0-100.0 fL Mean Corpuscular Hemoglobin 31.3 28.0-32.0 pg Mean Corpuscular Hemoglobin Concent 34.5 32.0-36.0 g/dL Red Cell Distribution Width 13.4 11.8-14.3 % Platelet Count 251 140-450 10^3/uL Mean Platelet Volume 9.5 6.9-10.8 fL Neutrophils (%) (Auto) 85.4 H 37.0-80.0 % Lymphocytes (%) (Auto) 6.8 L 10.0-50.0 % Monocytes (%) (Auto) 7.5 0.0-12.0 % Eosinophils (%) (Auto) 0.1 0.0-7.0 % Basophils (%) (Auto) 0.2 0.0-2.0 % Neutrophils # (Auto) 15.6 H 1.6-8.6 10 ^3/uL Lymphocytes # (Auto) 1.2 0.4-5.4 10 ^3/uL Monocytes # (Auto) 1.4 H 0-1.3 10 ^3/uL Eosinophils # (Auto) 0 0-0.8 10 ^3/uL Basophils # (Auto) 0 0-0.2 10 ^3/uL Nucleated Red Blood Cells 0.0 % Sodium Level 135 L 136-145 mmol/L Potassium Level 4.2 3.5-5.1 mmol/L Chloride Level 100 98-107 mmol/L Carbon Dioxide Level 24 20-31 mmol/L Anion Gap 11 5-15 Blood Urea Nitrogen 9 9-23 mg/dL Creatinine 0.90 0.700-1.30 mg/dL Glomerular Filtration Rate Calc 108 >90 mL/min BUN/Creatinine Ratio 10.0 10.0-20.0 Serum Glucose 115 H 74-106 mg/dL Calcium Level 9.1 8.7-10.4 mg/dL Total Bilirubin 1.6 H 0.2-1.0 mg/dL Aspartate Amino Transferase (AST) 19 13-40 U/L Alanine Aminotransferase (ALT) 18 7-40 U/L Alkaline Phosphatase 60 46-116 U/L Total Protein 7.2 5.7-8.2 g/dL Albumin 4.3 3.2-4.8 g/dL Hepatitis B Surface Antigen Negative Negative Hepatitis C Antibody Negative Negative Lactic Acid Level 0.8 0.4-2.0 mmol/L Test 04/10/25 15:07 Range/Units Lipase 23 12-53 U/L Microbiology Date/Time Source Procedure Growth Status 04/10/25 17:04 Blood Blood Culture - Preliminary NO GROWTH AFTER 24 HOURS OF INCUBATION. Resulted Examination: GENERAL:Normal, HEENT:Normal (no scleral icterus), NECK:Normal, ABDOMEN:Abnormal (non distended, no scars, soft and depressible, small umbilical hernia approx 0.5cm, RUQ exquisite tenderness, no rebound, no guarding), SKIN:Normal (no jaundice) Problem List/Assessment/Plan Problems: (1) Cholecystitis Assessment and Plan Mr. Toro is a 45 yo M who presented with acute cholecystitis. US images seen and it shows GBW thickening >4mm, pericholecystic fluid, multiple large gallstones, CBD normal for age at 4mm. Ct was also seen and shows a small umbilical hernia, gallbladder with the previous findings. As far as liver enzymes pt has a mild elevation in Tbili at 1.6. Pt will definately benefit from lap juliano during this admission. Procedure, risks, benefits, complications and alternatives discussed with pt. Pt agrees with surgical plan. -OK for clear liquid diet -NPO at midnight -house calls nurse to OR tomorrow am -AM labs: CBC, CMP, liver function test, type and screen -Continue with Zosyn Plan discussed with Plan discussed with: Patient Visit Coding Surgery Date of Service if different f: Apr 12, 2025 Billing Provider: ALFREDO SANDHU MD Surgery Visit Codes: [id number] - INP CONSULT <20 MIN ALFREDO SANDHU MD Apr 12, 2025 14:36
[2025-04-13] VITALS (7 sets, daily range): BP systolic 111–123; BP diastolic 69–86; PULSE 64–102; RESP 16–20; TEMP 97.6–98.9; O2SAT 90–100
[2025-04-13 05:55] LABS: Hematocrit 44.3 % (41.0-53.0); Hemoglobin 15.2 g/dL (13.5-17.5); Mean Corpuscular Hemoglobin 30.8 pg (28.0-32.0); Mean Corpuscular Volume 90.0 fL (80.0-100.0); Nucleated Red Blood Cells % 0.1 %
[2025-04-13 06:16] LABS: Alanine Aminotransferase 15 U/L (7-40); Albumin 4.3 g/dL (3.2-4.8); Alkaline Phosphatase 72 U/L (46-116); Anion Gap 7 (5-15); BUN/Creatinine Ratio 8.6 (10.0-20.0); Calcium 8.8 mg/dL (8.7-10.4); Carbon Dioxide 28 mmol/L (20-31); Potassium 4.3 mmol/L (3.5-5.1); Total Protein 6.9 g/dL (5.7-8.2)
[2025-04-13 06:22] LABS: Bilirubin, Direct 0.5 mg/dL (<0.3); Bilirubin, Total 1.4 mg/dL (0.2-1.0); Blood Urea Nitrogen 8 mg/dL (9-23); Chloride 97 mmol/L (98-107); Glucose 124 mg/dL (74-106); Sodium 132 mmol/L (136-145)
[2025-04-13] MEDS: BUPIVACAINE 0.25% INJ 50ML VIAL ONE (07:14)
[2025-04-13] MEDS ORDERED: KETAMINE 50mg/ML 1ml syringe ONE (07:27)
[2025-04-13] MEDS ORDERED: HYDROmorphone HCL 2 MG/ML VL/or syr ONE (07:27)
[2025-04-13] MEDS ORDERED: MIDAZOLAM HCL 2MG/2ML 2ml VIAL (1mg/ml) ONE (07:27)
[2025-04-13] MEDS ORDERED: fentaNYL CITRATE 100 MCG/2 ML VL ONE ×2 (07:27→08:32)
[2025-04-13] MEDS ORDERED: GLYCOPYRROLATE 0.2 MG/ML 1ML VIAL ONE (07:28)
[2025-04-13] MEDS ORDERED: PROPOFOL 10 MG/ML 20 ML IV ONE (07:28)
[2025-04-13] MEDS ORDERED: SUGAMMADEX 200mg/2ml Vial (100MG/ML) IV ONE ×2 (07:28→08:41)
[2025-04-13] MEDS ORDERED: LIDOCAINE 2% (LOCAL ANESTH.) PF 5ml SDV ONE (07:28)
[2025-04-13] MEDS ORDERED: ROCURONIUM 10MG/ML 10ML VIAL IV ONE (07:28)
--- NOTE | 2025-04-13 07:44 | DVH ---
INDICATION: smoker, fever, pre-op TECHNIQUE: Frontal view of the chest. COMPARISON: None FINDINGS: . The heart and mediastinal contours are grossly unremarkable. There is no evidence of pleural disea se. The lungs are clear. The bony structures of the chest are intact without fracture. IMPRESSION: 1. No evidence of acute disease.
[2025-04-13] MEDS: ACETAMINOPHEN IV 100 ML IV ONE (09:52)
[2025-04-13] MEDS ORDERED: MORPHINE SULFATE 4 MG/ML SYR/VIAL IV PRN (11:15)
[2025-04-13] MEDS ORDERED: METOCLOPRAMIDE HCL 5MG/ml INJ 2ml VIAL IV PRN (11:15)
[2025-04-13] MEDS ORDERED: MORPHINE SULFATE INJ 2 MG/ml SYRG IV PRN (11:15)
[2025-04-13] MEDS ORDERED: HYDROmorphone HCL 2 MG/ML VL/or syr IV PRN ×2 (11:15)
[2025-04-13] MEDS: KETOROLAC TROMETH 30 MG/ML 1ML VIAL IV ONE (11:15)
--- NOTE | 2025-04-13 11:57 | DVHPN2 ---
Subjective The patient seen and examined at bedside. Still nausea/and abdominal pain. Status post cholecystectomy. Reviewed: Care Plan, H&P, Labs, Medications, Previous Orders, Radiology Changes from previous H/P or p: No Changes Eyes: No Pain, No Vision change, No Conjunctivae inflammation, No Eyelid inflammation, No Other, No Redness ENT: No Ear pain, No Ear discharge, No Nose pain, No Nose discharge, No Nose congestion, No Mouth pain, No Mouth swelling, No Throat pain, No Throat swelling, No Other Cardiovascular: No Chest Pain, No Palpitations, No Orthopnea, No Paroxysmal Noc. Dyspnea, No Edema, No Lt Headedness, No Other Respiratory: No Cough, No Dry, No Shortness of breath, No SOB with excertion, No Wheezing, No Hemoptysis, No Pleuritic Pain, No Sputum, No Other Gastrointestinal: Nausea, Vomiting, Abdominal Pain, Diarrhea; No Constipation, No Melena, No Hematochezia, No Other Genitourinary: No Dysuria, No Frequency, No Incontinence, No Hematuria, No Retention, No Other Musculoskeletal: No other, No neck pain, No shoulder pain, No arm pain, No back pain, No hand pain, No leg pain, No foot pain Skin: No Rash, No Lesions, No Jaundice, No Bruising, No Other Objective Vitals Vital Signs Date Time Temp Pulse Resp B/P (MAP) Pulse Ox O2 Delivery O2 Flow Rate FiO2 04/13/25 11:07 98.7 102 12 130/87 (101) 100 98.7 04/13/25 11:07 Mask 7.0 100 Intake/Output Intake and Output 04/13/25 07:00 Intake Total 1900 ml Balance 1900 ml Intake Oral 500 ml IV Total 1400 ml # Voids 3 General Appearance: Alert, Oriented X3, Cooperative, No acute distress HEENT: Atraumatic, PERRLA, EOMI, Mucous membr. moist/pink Neck: Supple Lungs: Clear to auscultation, Normal air movement Cardiovascular: Regular rate, Normal S1, Normal S2, No murmurs, Gallops, Rubs Abdomen: Normal bowel sounds, Soft, No tenderness Neuro: Cranial nerves 3-12 NL Psych/Mental Status: Mental status NL Medications Current Medications Medications Dose Ordered Sig/Lorraine Route Start Time Stop Time Status Last Admin Dose Admin Ceftriaxone Sodium 50 ml @ 100 mls/hr DAILY@09 IV 04/10/25 17:30 Hold Sodium Chloride 1,000 ml @ 100 mls/hr Q10H IV 04/10/25 17:30 04/12/25 21:06 100 MLS/HR Ondansetron HCl 4 mg Q4HP PRN IV 04/10/25 17:30 Acetaminophen 650 mg Q6HP PRN PO 04/10/25 17:30 Morphine Sulfate 2 mg Q4HPRN PRN IV 04/10/25 17:30 04/13/25 05:54 2 MG Piperacillin Sod/ Tazobactam Sod 100 ml @ 25 mls/hr Q6HR IV 04/11/25 02:30 04/13/25 05:55 25 MLS/HR Acetaminophen/ Hydrocodone Bitart 1 tab Q6HP PRN PO 04/13/25 11:00 Acetaminophen/ Hydrocodone Bitart 1 tab Q6HPRN PRN PO 04/13/25 11:00 Hydromorphone HCl 0.5 mg Q10M PRN IV 04/13/25 11:15 04/13/25 11:56 Morphine Sulfate 2 mg Q4H PRN IV 04/13/25 11:15 04/13/25 15:16 Morphine Sulfate 1 mg Q30M PRN IV 04/13/25 11:15 04/13/25 13:16 Laboratory Results Laboratory Tests 04/13/25 04:34 Chemistry Test 04/13/25 04:34 Albumin 4.3 g/dL (3.2-4.8) Calcium Level 8.8 mg/dL (8.7-10.4) Total Protein 6.9 g/dL (5.7-8.2) LFT Test 04/13/25 04:34 Alanine Aminotransferase (ALT) 15 U/L (7-40) Alkaline Phosphatase 72 U/L (46-116) Aspartate Amino Transferase (AST) 18 U/L (13-40) Direct Bilirubin 0.5 mg/dL (<0.3) H Total Bilirubin 1.4 mg/dL (0.2-1.0) H Urinalysis Test 04/11/25 06:00 Urine Color Light-yellow (Yellow) Urine Clarity Clear (Clear) Urine pH 6.5 (5.0-9.0) Urine Specific [place] 1.016 (1.001-1.035) Urine Protein Negative (Negative) Urine Ketones Trace (Negative) Urine Blood Negative /uL (Negative) Urine Nitrite Negative (Negative) Urine Bilirubin Negative (Negative) Urine Urobilinogen Normal mg/dL (Negative) Urine Leukocyte Esterase Negative /uL (Negative) Urine RBC 2 /hpf (0 - 3) Urine Microscopic WBC 1 /HPF (0-3) Urine Squamous Epithelial Cells Few /hpf (<5) Urine Bacteria None seen /hpf (None Seen) Urine Glucose Normal mg/dL (Normal) Microbiology Microbiology Date/Time Source Procedure Growth Status 04/10/25 17:04 Blood Blood Culture - Preliminary NO GROWTH AFTER 48 HOURS OF INCUBATION. Resulted Labs and/or images reviewed: Labs reviewed by me Assessment/Plan Assessment/Plan # acute cholecystitis, status post cholecystectomy. # acute abdominal pain likely due to large to burden throughout the colon # diarrhea * Ultrasound gallbladder ordered * NPO * IV fluid * Rocephin, Zosyn # Polysubstance abuse * Counseled # hx of Depression * continue # homelessness * consider social worker aide consult * Continuing current management. DW surgeon, Dr Hubbard, patient had gangrenous gallbladder. Continue current antibiotic and closely follow up with labs. This medical document was created using an electronic medical record system with [employer] computerized dictation system. Although this document has been carefully reviewed, there may still be some phonetic and typographical errors. These areas are purely typographical due to imperfections of the software programs, and do not reflect any compromise in the patient's medical care. Plan discussed with: Patient Date of Service: Apr 13, 2025 Billing Provider: FABIO VALENTIN MD Common Visit Codes: [id number] INP/OBS CARE(HIGH) FABIO VALENTIN MD Apr 13, 2025 11:57
[2025-04-13] MEDS ORDERED: ACETAMINOPHEN 325 MG TAB PO ONE (12:00)
--- NOTE | 2025-04-13 14:31 | ECG ---
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
[2025-04-13] MEDS: HYDROcodone-ACET 7.5/325MG TAB PO PRN (16:29)
[2025-04-14] VITALS (8 sets, daily range): BP systolic 115–138; BP diastolic 82–100; PULSE 65–72; RESP 18–22; TEMP 97.8–98.2; O2SAT 94–98
[2025-04-14 06:46] LABS: Hematocrit 36.3 % (41.0-53.0); Hemoglobin 12.8 g/dL (13.5-17.5); Mean Corpuscular Hemoglobin 31.6 pg (28.0-32.0); Mean Corpuscular Volume 89.4 fL (80.0-100.0); Nucleated Red Blood Cells % 0.0 %
[2025-04-14 07:09] LABS: Alanine Aminotransferase 38 U/L (7-40); Albumin 3.8 g/dL (3.2-4.8); Alkaline Phosphatase 69 U/L (46-116); Anion Gap 9 (5-15); BUN/Creatinine Ratio 16.0 (10.0-20.0); Blood Urea Nitrogen 12 mg/dL (9-23); Carbon Dioxide 27 mmol/L (20-31); Chloride 98 mmol/L (98-107); Potassium 4.4 mmol/L (3.5-5.1); Total Protein 6.5 g/dL (5.7-8.2)
[2025-04-14 07:10] LABS: Bilirubin, Total 0.4 mg/dL (0.2-1.0)
[2025-04-14 07:11] LABS: Calcium 8.6 mg/dL (8.7-10.4); Glucose 159 mg/dL (74-106); Sodium 134 mmol/L (136-145)
[2025-04-14 07:32] LABS: Bilirubin, Direct 0.2 mg/dL (<0.3)
--- NOTE | 2025-04-14 10:25 | DVHPN2 ---
Progress Note - Surgical Date Seen: Apr 14, 2025 Post op day Post op day: 1 Subjective Patient reports: Feels better (Complaints of distention and some ruq abdominal pain, denies: nausea vomiting. On low fat diet.) Review of Systems: Not Done Objective Vital signs Vital Sign Date Time Temp Pulse Resp B/P (MAP) Pulse Ox O2 Delivery O2 Flow Rate FiO2 04/14/25 09:00 97.8 68 19 134/97 (109) 97 97.8 04/13/25 20:00 Room Air* 0 21 Total Intake and Output 04/13/25 04/13/25 04/14/25 15:00 23:00 07:00 Intake Total 100 ml 400 ml 708 ml Output Total 30 ml 1050 ml 1200 ml Balance 70 ml -650 ml -492 ml Medications Current Medications Medications Dose Ordered Sig/Lorraine Route Start Time Stop Time Status Last Admin Dose Admin Ceftriaxone Sodium 50 ml @ 100 mls/hr DAILY@09 IV 04/10/25 17:30 Hold Sodium Chloride 1,000 ml @ 100 mls/hr Q10H IV 04/10/25 17:30 04/14/25 01:30 100 MLS/HR Ondansetron HCl 4 mg Q4HP PRN IV 04/10/25 17:30 Acetaminophen 650 mg Q6HP PRN PO 04/10/25 17:30 Morphine Sulfate 2 mg Q4HPRN PRN IV 04/10/25 17:30 04/13/25 05:54 2 MG Piperacillin Sod/ Tazobactam Sod 100 ml @ 25 mls/hr Q6HR IV 04/11/25 02:30 04/14/25 06:15 25 MLS/HR Acetaminophen/ Hydrocodone Bitart 1 tab Q6HP PRN PO 04/13/25 11:00 04/14/25 06:54 1 TAB Acetaminophen/ Hydrocodone Bitart 1 tab Q6HPRN PRN PO 04/13/25 11:00 Laboratory Laboratory Tests 04/14/25 06:11 Test 04/14/25 06:11 Range/Units Serum Glucose 159 H 74-106 mg/dL Microbiology Date/Time Source Procedure Growth Status 04/10/25 17:04 Blood Blood Culture - Preliminary NO GROWTH AFTER 72 HOURS OF INCUBATION. Resulted Examination: GENERAL:Normal, ABDOMEN:Abnormal (Distended, steri strips in place, RUQ tenderness, no rebound, no guarding, ) Labs and/or images reviewed: Labs reviewed by me Problem List/Assessment/Plan Assessment and Plan 45 yo M who presented with acute gangrenous cholecystitis currently POD 1 from [facility]. Pt tolerated diet post op. Currently distended due to ileus as gallbladder was gangrenous with pus spillage. Pt is high risk for abscess development despite IV ABX, given the severity of the infection on presentation. LFTs within normal limits, leukocytosis 12 from 12. -Continue ABX for 4 days post surgery: Recommend Zosyn while in hospital -KUB ordered -Might need NGT for decompression if worsens -Drain care: BID stripping and PRN draining -Needs to ambulate at least TID -No PO motility agents -CLD My Orders My Orders Orders - ALFREDO SANDHU MD Procedure Category Date Status Time Anaerobic Culture JOSE LUIS 04/13/25 In Process 10:43 Gram Stain JOSE LUIS 04/13/25 In Process 10:43 Routine Bacterial JOSE LUIS 04/13/25 In Process Culture 10:43 Hydrocodone-Acet PHA 04/13/25 In Process 7.5/325mg Tab ([place] 11:00 Hydrocodone-Acet PHA 04/13/25 In Process 5/325mg Tab ([place] 11:00 Cardiac DIET 04/13/25 Transmitted Diet-2gna,Lofat,Lochol Lunch Tyrell Drain To Closed ANTHONY 04/13/25 In Process Suction 11:01 Electrocardigram EKG 04/13/25 Resulted 07:05 Plan discussed with Plan discussed with: Patient Visit Coding Surgery Date of Service if different f: Apr 14, 2025 Billing Provider: ALFREDO SANDHU MD Surgery Visit Codes: [id number] INP/OBS CARE(HIGH) ALFREDO SANDHU MD Apr 14, 2025 10:25
--- NOTE | 2025-04-14 12:12 | DVH ---
Indication: Post op Ileus Technique: XY KUB ABDOMEN SINGLE VIEWXY Comparison: None FINDINGS/IMPRESSION: m limited examination. Upper abdomen not completely visualized. Large volume stool within the colon which measures up to 9 cm in diameter. Gaseous distention of the small bowel loops up to approximately 4.6 cm. These findings can be second jaxon to ileus, constipation although obstruction can not be ruled out. Abdominal drainage catheter projecting over the right upper quadrant of the abdomen. Cholecystectomy clips.
--- NOTE | 2025-04-14 12:30 | DVHPN2 ---
Subjective The patient seen and examined at bedside. Still nausea/and abdominal pain. Status post cholecystectomy. Reviewed: Care Plan, H&P, Labs, Medications, Previous Orders, Radiology Changes from previous H/P or p: No Changes Eyes: No Pain, No Vision change, No Conjunctivae inflammation, No Eyelid inflammation, No Other, No Redness ENT: No Ear pain, No Ear discharge, No Nose pain, No Nose discharge, No Nose congestion, No Mouth pain, No Mouth swelling, No Throat pain, No Throat swelling, No Other Cardiovascular: No Chest Pain, No Palpitations, No Orthopnea, No Paroxysmal Noc. Dyspnea, No Edema, No Lt Headedness, No Other Respiratory: No Cough, No Dry, No Shortness of breath, No SOB with excertion, No Wheezing, No Hemoptysis, No Pleuritic Pain, No Sputum, No Other Gastrointestinal: Nausea, Vomiting, Abdominal Pain, Diarrhea; No Constipation, No Melena, No Hematochezia, No Other Genitourinary: No Dysuria, No Frequency, No Incontinence, No Hematuria, No Retention, No Other Musculoskeletal: No other, No neck pain, No shoulder pain, No arm pain, No back pain, No hand pain, No leg pain, No foot pain Skin: No Rash, No Lesions, No Jaundice, No Bruising, No Other Objective Vitals Vital Signs Date Time Temp Pulse Resp B/P (MAP) Pulse Ox O2 Delivery O2 Flow Rate FiO2 04/14/25 12:20 72 20 136/100 04/14/25 09:00 97.8 97 97.8 04/13/25 20:00 Room Air* 0 21 Intake/Output Intake and Output 04/14/25 07:00 Intake Total 1208 ml Output Total 2280 ml Balance -1072 ml Intake Oral 1108 ml IV Total 100 ml Output Urine Total 2200 ml Drainage Total 80 ml # Bowel Movements 2 General Appearance: Alert, Oriented X3, Cooperative, No acute distress HEENT: Atraumatic, PERRLA, EOMI, Mucous membr. moist/pink Neck: Supple Lungs: Clear to auscultation, Normal air movement Cardiovascular: Regular rate, Normal S1, Normal S2, No murmurs, Gallops, Rubs Abdomen: Normal bowel sounds, Soft, No tenderness Neuro: Cranial nerves 3-12 NL Psych/Mental Status: Mental status NL Medications Current Medications Medications Dose Ordered Sig/Lorraine Route Start Time Stop Time Status Last Admin Dose Admin Ceftriaxone Sodium 50 ml @ 100 mls/hr DAILY@09 IV 04/10/25 17:30 Hold Sodium Chloride 1,000 ml @ 100 mls/hr Q10H IV 04/10/25 17:30 04/14/25 01:30 100 MLS/HR Ondansetron HCl 4 mg Q4HP PRN IV 04/10/25 17:30 Acetaminophen 650 mg Q6HP PRN PO 04/10/25 17:30 Morphine Sulfate 2 mg Q4HPRN PRN IV 04/10/25 17:30 04/14/25 12:20 2 MG Piperacillin Sod/ Tazobactam Sod 100 ml @ 25 mls/hr Q6HR IV 04/11/25 02:30 04/14/25 06:15 25 MLS/HR Acetaminophen/ Hydrocodone Bitart 1 tab Q6HP PRN PO 04/13/25 11:00 04/14/25 06:54 1 TAB Acetaminophen/ Hydrocodone Bitart 1 tab Q6HPRN PRN PO 04/13/25 11:00 Laboratory Results Laboratory Tests 04/14/25 06:11 Chemistry Test 04/14/25 06:11 Albumin 3.8 g/dL (3.2-4.8) Calcium Level 8.6 mg/dL (8.7-10.4) L Total Protein 6.5 g/dL (5.7-8.2) LFT Test 04/14/25 06:11 Alanine Aminotransferase (ALT) 38 U/L (7-40) Alkaline Phosphatase 69 U/L (46-116) Aspartate Amino Transferase (AST) 35 U/L (13-40) Direct Bilirubin 0.2 mg/dL (<0.3) Total Bilirubin 0.4 mg/dL (0.2-1.0) Urinalysis Test 04/11/25 06:00 Urine Color Light-yellow (Yellow) Urine Clarity Clear (Clear) Urine pH 6.5 (5.0-9.0) Urine Specific Brandon 1.016 (1.001-1.035) Urine Protein Negative (Negative) Urine Ketones Trace (Negative) Urine Blood Negative /uL (Negative) Urine Nitrite Negative (Negative) Urine Bilirubin Negative (Negative) Urine Urobilinogen Normal mg/dL (Negative) Urine Leukocyte Esterase Negative /uL (Negative) Urine RBC 2 /hpf (0 - 3) Urine Microscopic WBC 1 /HPF (0-3) Urine Squamous Epithelial Cells Few /hpf (<5) Urine Bacteria None seen /hpf (None Seen) Urine Glucose Normal mg/dL (Normal) Microbiology Microbiology Date/Time Source Procedure Growth Status 04/13/25 10:12 Gallbladder Fluid Gram Stain Pending Resulted 04/13/25 10:12 Gallbladder Fluid Anaerobic Culture Pending Resulted 04/13/25 10:12 Gallbladder Fluid Aerobic Culture - Preliminary Resulted 04/10/25 17:04 Blood Blood Culture - Preliminary NO GROWTH AFTER 72 HOURS OF INCUBATION. Resulted Labs and/or images reviewed: Labs reviewed by me Assessment/Plan Assessment/Plan # acute cholecystitis, status post cholecystectomy. # acute abdominal pain likely due to large to burden throughout the colon # diarrhea * Ultrasound gallbladder ordered * NPO * IV fluid * Rocephin, Zosyn # Polysubstance abuse * Counseled # hx of Depression * continue # homelessness * consider health care social worker consult * Continuing current management. DW surgeon, Dr Hubbard, patient had gangrenous gallbladder. Continue current antibiotic and closely follow up with labs. Continue current management. This medical document was created using an electronic medical record system with [employer] direct computerized dictation system. Although this document has been carefully reviewed, there may still be some phonetic and typographical errors. These areas are purely typographical due to imperfections of the software programs, and do not reflect any compromise in the patient's medical care. Plan discussed with: Patient Date of Service: Apr 14, 2025 Billing Provider: FABIO VALENTIN MD Common Visit Codes: [id number] INP/OBS CARE(HIGH) FABIO VALENTIN MD Apr 14, 2025 12:30
--- NOTE | 2025-04-14 14:02 | DVHOP2 ---
Operative Report - 2 Report Details Date: 04/13/25 Preop Diagnosis: Acute cholecystitis Postop Diagnosis: Acute Gangrenous cholecystitis Surgeon: Bj Man MD Integration Solution Architect: Alberto Booker NP Anesthesiologist: Dr. Ruiz Anesthesia: General Drains: 19 Cuban round channel drain Consent: The patient was informed of the risks and benefits of the procedure. These include but are not limited to complications of anesthesia, postoperative infection, incomplete relief of symptoms, recurrence of symptoms, damage to blood vessels, nerves and tendons, deep venous thrombosis, pulmonary embolism and possible need for repeat surgery in the future. Complications: none Estimated Blood Loss: 50ml Findings: Gangrenous gallbladder on chronic inflammatory changes. Inflammatory fluid throughout right upper quadrant. Omentum adhered to the liver over the gallbladder. Friable tissues. Indications for Surgery: Acute cholecystitis Name of Procedure Performed Laparoscopic cholecystectomy Procedure Details Procedure Details: Upon arriving to the operating room the patient was transferred to the operating table and placed in the supine position with arms extended. General endotracheal anesthesia was induced. Time out was done by all teams present. Patient was prepped and drapped in the usual standard surgical fashion with chlorhexidine. I then made a curvilinear infra-umbilical incision and dissected down to fascia. Umbilical stalk was grasped at the fascia junction and elevated. Fascia was then incised. Figure of eight fascial stitch was placed with 0 Vicryl. We then introduced a Fransisca trocar. Abdomen was insufflated to 15mmHG with toleration. Entry site was inspected, no injuries. We then placed 3 additional 5mm ports at the epigastric, right midclavicular line below ribs and right flank. We then directed our attention to the liver at gallbladder area. Omentum was plastered to the liver, preventing gallbladder visualization. Omentum was taken down both bluntly and with cautery. We now visualized the gallbladder, which was very enlarged and extending to segment 6 of the liver. Gallbladder was grasped at the fundus, it was gangrenous, friable, and very distended. Grasped ripped a hole in the gallbladder and hydrops and lots of pus started emanating from it. Gallbladder was suctioned through that hole. There was severe inflammation of the gallbladder on top of chronic inflammatory changes. Dissection started laterally and with caution. After a great deal of effort, I was able to identify Calot's triangle. I then skeletonized the artery and duct. Cystic artery and duct were doubly clipped distal and one proximal and transected. We then dissected the gallbladder from the liver bed. Given the severe inflammation and gangrene of the gallbladder wall, the gallbladder kept ripping. Parts of the back wall were left behind. The back wall mucosa was cauterized. We had spillage of pus, hydrops and stones. Gallbladder and all stones were then placed in the Endocatch bag and removed from the peritoneal cavity. I then copiously serially irrigated the fossa and over the liver and suctioned all fluid. We had diffuse oozing from raw surfaces and surgicel snow was placed in the fossa. Hemostasis achieved. We then placed a 19 Cuban round channel drain under the liver and exiting through the right lateral port. We reinspected the liver bed and no issues noted. Trocars removed and cavity desufflated. All counts complete and correct. Previous figure of eight was closed. Skin closed with 4-0 Monocryl and derma whipple. Patient tolerated the procedure well and was transferred to PACU in stable condition. Specimen: Gallbladder and contents Condition Stable Disposition Still a Patient BJ SANDHU MD Apr 13, 2025 17:40
--- NOTE | 2025-04-14 14:03 | POSTOP ---
Post-Operative Note Post-Operative Note Preop Diagnosis Acute cholecystitis Postop Diagnosis: Acute gangrenous cholecystitis Operation performed Laparoscopic cholecystectomy Anesthesia: General Anesthesiologist: Dr. Ruiz Surgeon Bj Man MD Additional Remarks Pt doing well post surgery, tolerating diet. Minimal output from drain. Date 04/13/25 Time 18:08 BJ SANDHU MD Apr 13, 2025 18:12
[2025-04-14] MEDS: ONDANSETRON HCL 4 MG/2 ML VIAL IV PRN (14:04)
[2025-04-15] VITALS (7 sets, daily range): BP systolic 114–133; BP diastolic 81–95; PULSE 64–72; RESP 18–20; TEMP 97.3–98.6; O2SAT 95–98
[2025-04-15 07:34] LABS: Hematocrit 37.6 % (41.0-53.0); Hemoglobin 13.2 g/dL (13.5-17.5); Mean Corpuscular Hemoglobin 31.3 pg (28.0-32.0); Mean Corpuscular Volume 89.1 fL (80.0-100.0); Nucleated Red Blood Cells % 0.1 %
[2025-04-15 07:48] LABS: Albumin 3.5 g/dL (3.2-4.8); Alkaline Phosphatase 68 U/L (46-116); Anion Gap 9 (5-15); BUN/Creatinine Ratio 15.7 (10.0-20.0); Bilirubin, Direct 0.1 mg/dL (<0.3); Bilirubin, Total 0.3 mg/dL (0.2-1.0); Blood Urea Nitrogen 11 mg/dL (9-23); Carbon Dioxide 25 mmol/L (20-31); Chloride 102 mmol/L (98-107); Potassium 4.0 mmol/L (3.5-5.1); Sodium 136 mmol/L (136-145); Total Protein 6.3 g/dL (5.7-8.2)
[2025-04-15 08:10] LABS: Alanine Aminotransferase 56 U/L (7-40); Calcium 8.5 mg/dL (8.7-10.4); Glucose 128 mg/dL (74-106)
--- NOTE | 2025-04-15 11:03 | DVHPN2 ---
Progress Note - Surgical Date Seen: Apr 15, 2025 Post op day Post op day: 2 Subjective Patient reports: Feels better (States abdomen is less distended, had 2 bowel movements, afebrile, vital signs stable) Review of Systems: Not Done Objective Vital signs Vital Sign Date Time Temp Pulse Resp B/P (MAP) Pulse Ox O2 Delivery O2 Flow Rate FiO2 04/15/25 09:00 98.1 64 19 128/87 (101) 97 98.1 04/14/25 20:00 Room Air* 0 21 Total Intake and Output 04/14/25 04/14/25 04/15/25 15:00 23:00 07:00 Intake Total 200 ml 600 ml Output Total 85 ml 1045 ml 1450 ml Balance -85 ml -845 ml -850 ml Medications Current Medications Medications Dose Ordered Sig/Lorraine Route Start Time Stop Time Status Last Admin Dose Admin Ceftriaxone Sodium 50 ml @ 100 mls/hr DAILY@09 IV 04/10/25 17:30 Hold Sodium Chloride 1,000 ml @ 100 mls/hr Q10H IV 04/10/25 17:30 04/14/25 21:30 100 MLS/HR Ondansetron HCl 4 mg Q4HP PRN IV 04/10/25 17:30 04/14/25 14:04 4 MG Acetaminophen 650 mg Q6HP PRN PO 04/10/25 17:30 Morphine Sulfate 2 mg Q4HPRN PRN IV 04/10/25 17:30 04/14/25 12:20 2 MG Piperacillin Sod/ Tazobactam Sod 100 ml @ 25 mls/hr Q6HR IV 04/11/25 02:30 04/15/25 05:20 25 MLS/HR Acetaminophen/ Hydrocodone Bitart 1 tab Q6HP PRN PO 04/13/25 11:00 04/14/25 06:54 1 TAB Acetaminophen/ Hydrocodone Bitart 1 tab Q6HPRN PRN PO 04/13/25 11:00 Laboratory Laboratory Tests 04/15/25 06:10 Test 04/15/25 06:10 Range/Units Serum Glucose 128 H 74-106 mg/dL Microbiology Date/Time Source Procedure Growth Status 04/13/25 10:12 Gallbladder Fluid Gram Stain Pending Resulted 04/13/25 10:12 Gallbladder Fluid Anaerobic Culture - Preliminary Resulted 04/13/25 10:12 Gallbladder Fluid Aerobic Culture - Preliminary Resulted 04/10/25 17:04 Blood Blood Culture - Preliminary NO GROWTH AFTER 72 HOURS OF INCUBATION. Resulted Examination: GENERAL:Normal, HEENT:Normal (No icterus), ABDOMEN:Normal (Slight distention,soft and depressible, incision sites without surrounding erythema edema or ecchymosis, drain in the right upper quadrant with seropurulent drainage(130 mL in last 24 hours), minimal right upper quadrant tenderness, no rebound, no guarding,) Labs and/or images reviewed: Labs reviewed by me (Leukocytosis resolved, no elevation in bilirubin levels) Problem List/Assessment/Plan Problems: (1) Cholecystitis Assessment and Plan 45 yo M who presented with acute gangrenous cholecystitis, with pus, currently POD 2 from [facility]. Due to his pathology on presentation he is at high risk of developing an intra-abdominal abscess despite surgical gallbladder removal. Patient developed an ileus yesterday which is to be expected given his advanced on presentation. This morning abdomen is less distended, less painful, and less tender. Leukocytosis has resolved today is 9.1 from 12.5. There is no elevation on bilirubin levels. Drain put out 130 mL of seropurulent material. Patient will continue to benefit from inpatient care with IV antibiotics. -Continue ABX for 4 days post surgery: Recommend Zosyn while in hospital -KUB from yesterday showing ileus -Drain care: BID stripping and PRN draining -Needs to ambulate at least TID -No PO motility agents -continue with clear liquid diet -continue with pain and nausea control Plan discussed with Plan discussed with: Patient Visit Coding Surgery Date of Service if different f: Apr 15, 2025 Billing Provider: ALFREDO SANDHU MD Surgery Visit Codes: [id number] INP/OBS CARE(HIGH) ALFREDO SANDHU MD Apr 15, 2025 11:03
--- NOTE | 2025-04-15 12:09 | DVHPN2 ---
Subjective The patient seen and examined at bedside. Still nausea/and abdominal pain. Status post cholecystectomy. Reviewed: Care Plan, H&P, Labs, Medications, Previous Orders, Radiology Changes from previous H/P or p: No Changes Eyes: No Pain, No Vision change, No Conjunctivae inflammation, No Eyelid inflammation, No Other, No Redness ENT: No Ear pain, No Ear discharge, No Nose pain, No Nose discharge, No Nose congestion, No Mouth pain, No Mouth swelling, No Throat pain, No Throat swelling, No Other Cardiovascular: No Chest Pain, No Palpitations, No Orthopnea, No Paroxysmal Noc. Dyspnea, No Edema, No Lt Headedness, No Other Respiratory: No Cough, No Dry, No Shortness of breath, No SOB with excertion, No Wheezing, No Hemoptysis, No Pleuritic Pain, No Sputum, No Other Gastrointestinal: Nausea, Vomiting, Abdominal Pain, Diarrhea; No Constipation, No Melena, No Hematochezia, No Other Genitourinary: No Dysuria, No Frequency, No Incontinence, No Hematuria, No Retention, No Other Musculoskeletal: No other, No neck pain, No shoulder pain, No arm pain, No back pain, No hand pain, No leg pain, No foot pain Skin: No Rash, No Lesions, No Jaundice, No Bruising, No Other Objective Vitals Vital Signs Date Time Temp Pulse Resp B/P (MAP) Pulse Ox O2 Delivery O2 Flow Rate FiO2 04/15/25 09:00 98.1 64 19 128/87 (101) 97 98.1 04/14/25 20:00 Room Air* 0 21 Intake/Output Intake and Output 04/15/25 07:00 Intake Total 800 ml Output Total 2580 ml Balance -1780 ml Intake Oral 800 ml Output Urine Total 2450 ml Drainage Total 130 ml # Bowel Movements 2 General Appearance: Alert, Oriented X3, Cooperative, No acute distress HEENT: Atraumatic, PERRLA, EOMI, Mucous membr. moist/pink Neck: Supple Lungs: Clear to auscultation, Normal air movement Cardiovascular: Regular rate, Normal S1, Normal S2, No murmurs, Gallops, Rubs Abdomen: Normal bowel sounds, Soft, No tenderness Neuro: Cranial nerves 3-12 NL Psych/Mental Status: Mental status NL Medications Current Medications Medications Dose Ordered Sig/Lorraine Route Start Time Stop Time Status Last Admin Dose Admin Ceftriaxone Sodium 50 ml @ 100 mls/hr DAILY@09 IV 04/10/25 17:30 Hold Sodium Chloride 1,000 ml @ 100 mls/hr Q10H IV 04/10/25 17:30 04/14/25 21:30 100 MLS/HR Ondansetron HCl 4 mg Q4HP PRN IV 04/10/25 17:30 04/14/25 14:04 4 MG Acetaminophen 650 mg Q6HP PRN PO 04/10/25 17:30 Morphine Sulfate 2 mg Q4HPRN PRN IV 04/10/25 17:30 04/14/25 12:20 2 MG Piperacillin Sod/ Tazobactam Sod 100 ml @ 25 mls/hr Q6HR IV 04/11/25 02:30 04/15/25 05:20 25 MLS/HR Acetaminophen/ Hydrocodone Bitart 1 tab Q6HP PRN PO 04/13/25 11:00 04/14/25 06:54 1 TAB Acetaminophen/ Hydrocodone Bitart 1 tab Q6HPRN PRN PO 04/13/25 11:00 Laboratory Results Laboratory Tests 04/15/25 06:10 Chemistry Test 04/15/25 06:10 Albumin 3.5 g/dL (3.2-4.8) Calcium Level 8.5 mg/dL (8.7-10.4) L Total Protein 6.3 g/dL (5.7-8.2) LFT Test 04/15/25 06:10 Alanine Aminotransferase (ALT) 56 U/L (7-40) H Alkaline Phosphatase 68 U/L (46-116) Aspartate Amino Transferase (AST) 51 U/L (13-40) H Direct Bilirubin 0.1 mg/dL (<0.3) Total Bilirubin 0.3 mg/dL (0.2-1.0) Urinalysis Test 04/11/25 06:00 Urine Color Light-yellow (Yellow) Urine Clarity Clear (Clear) Urine pH 6.5 (5.0-9.0) Urine Specific [place] 1.016 (1.001-1.035) Urine Protein Negative (Negative) Urine Ketones Trace (Negative) Urine Blood Negative /uL (Negative) Urine Nitrite Negative (Negative) Urine Bilirubin Negative (Negative) Urine Urobilinogen Normal mg/dL (Negative) Urine Leukocyte Esterase Negative /uL (Negative) Urine RBC 2 /hpf (0 - 3) Urine Microscopic WBC 1 /HPF (0-3) Urine Squamous Epithelial Cells Few /hpf (<5) Urine Bacteria None seen /hpf (None Seen) Urine Glucose Normal mg/dL (Normal) Microbiology Microbiology Date/Time Source Procedure Growth Status 04/13/25 10:12 Gallbladder Fluid Gram Stain Pending Resulted 04/13/25 10:12 Gallbladder Fluid Anaerobic Culture - Preliminary Resulted 04/13/25 10:12 Gallbladder Fluid Aerobic Culture - Preliminary Resulted 04/10/25 17:04 Blood Blood Culture - Preliminary NO GROWTH AFTER 72 HOURS OF INCUBATION. Resulted Labs and/or images reviewed: Labs reviewed by me Assessment/Plan Assessment/Plan # acute cholecystitis, status post cholecystectomy. # ileus per KUB # acute abdominal pain likely due to large to burden throughout the colon # diarrhea * Ultrasound gallbladder ordered * NPO * IV fluid * Rocephin, Zosyn # Polysubstance abuse * Counseled # hx of Depression * continue # homelessness * consider outreach and education social worker consult * Continuing current management. DW surgeon, Dr Hubbard, patient had gangrenous gallbladder. Continue current antibiotic and closely follow up with labs. Continuing current management. Per surgeon the patient needs four days on IV antibiotics Zosyn. So we will continuing IV antibiotics for now. Continuing with pain medication. Encouraged the patient to be out of bed and ambulate. Advance diet per surgeon. This medical document was created using an electronic medical record system with [employer] direct computerized dictation system. Although this document has been carefully reviewed, there may still be some phonetic and typographical errors. These areas are purely typographical due to imperfections of the software programs, and do not reflect any compromise in the patient's medical care. Plan discussed with: Patient Date of Service: Apr 15, 2025 Billing Provider: FABIO VALENTIN MD Common Visit Codes: [id number] INP/OBS CARE(HIGH) FABIO VALENTIN MD Apr 15, 2025 12:09
[2025-04-15 16:04] LABS: Opiate Scree,Urine Neg (NEGATIVE)
[2025-04-15 16:05] LABS: Amphetamine Screen, Urine Neg (NEGATIVE); Barbiturate Scree,Urine Neg (NEGATIVE); Benzodiazephine Screen, Urine Neg (NEGATIVE); Cannabinoid Screen, Urine Neg (NEGATIVE); Cocaine Screen, Urine Neg (NEGATIVE); Phencyclidine Screen, Urine Neg (NEGATIVE)
[2025-04-15] MEDS: HALOPERIDOL LACTATE 5 MG/ML INJ VIAL IM ONE (18:52)
[2025-04-15] MEDS: diphenhdrAMINE HCL 50 MG/1 ML VL IV ONE (18:52)
[2025-04-15] MEDS: LORazepam 2MG/ML-1ML VIAL IV PRN (18:53)
[2025-04-16] VITALS (8 sets, daily range): BP systolic 100–129; BP diastolic 56–94; PULSE 62–112; RESP 18–20; TEMP 97.4–98.1; O2SAT 97–100
--- NOTE | 2025-04-16 09:50 | DVHPN2 ---
Subjective The patient seen and examined at bedside. Feel better. Status post cholecystectomy. Reviewed: Care Plan, H&P, Labs, Medications, Previous Orders, Radiology Changes from previous H/P or p: No Changes Eyes: No Pain, No Vision change, No Conjunctivae inflammation, No Eyelid inflammation, No Other, No Redness ENT: No Ear pain, No Ear discharge, No Nose pain, No Nose discharge, No Nose congestion, No Mouth pain, No Mouth swelling, No Throat pain, No Throat swelling, No Other Cardiovascular: No Chest Pain, No Palpitations, No Orthopnea, No Paroxysmal Noc. Dyspnea, No Edema, No Lt Headedness, No Other Respiratory: No Cough, No Dry, No Shortness of breath, No SOB with excertion, No Wheezing, No Hemoptysis, No Pleuritic Pain, No Sputum, No Other Gastrointestinal: Nausea, Vomiting, Abdominal Pain, Diarrhea; No Constipation, No Melena, No Hematochezia, No Other Genitourinary: No Dysuria, No Frequency, No Incontinence, No Hematuria, No Retention, No Other Musculoskeletal: No other, No neck pain, No shoulder pain, No arm pain, No back pain, No hand pain, No leg pain, No foot pain Skin: No Rash, No Lesions, No Jaundice, No Bruising, No Other Objective Vitals Vital Signs Date Time Temp Pulse Resp B/P (MAP) Pulse Ox O2 Delivery O2 Flow Rate FiO2 04/16/25 05:07 98.1 62 19 105/71 (82) 98 98.1 04/15/25 20:00 Room Air* 0 21 Intake/Output Intake and Output 04/16/25 07:00 Intake Total 920 ml Output Total 2650 ml Balance -1730 ml Intake Oral 920 ml Output Urine Total 2650 ml # Voids 1 General Appearance: Alert, Oriented X3, Cooperative, No acute distress HEENT: Atraumatic, PERRLA, EOMI, Mucous membr. moist/pink Neck: Supple Lungs: Clear to auscultation, Normal air movement Cardiovascular: Regular rate, Normal S1, Normal S2, No murmurs, Gallops, Rubs Abdomen: Normal bowel sounds, Soft, No tenderness Neuro: Cranial nerves 3-12 NL Psych/Mental Status: Mental status NL Medications Current Medications Medications Dose Ordered Sig/Lorraine Route Start Time Stop Time Status Last Admin Dose Admin Ceftriaxone Sodium 50 ml @ 100 mls/hr DAILY@09 IV 04/10/25 17:30 Hold Sodium Chloride 1,000 ml @ 100 mls/hr Q10H IV 04/10/25 17:30 04/15/25 17:53 100 MLS/HR Ondansetron HCl 4 mg Q4HP PRN IV 04/10/25 17:30 04/14/25 14:04 4 MG Acetaminophen 650 mg Q6HP PRN PO 04/10/25 17:30 Morphine Sulfate 2 mg Q4HPRN PRN IV 04/10/25 17:30 04/14/25 12:20 2 MG Piperacillin Sod/ Tazobactam Sod 100 ml @ 25 mls/hr Q6HR IV 04/11/25 02:30 04/16/25 06:03 25 MLS/HR Acetaminophen/ Hydrocodone Bitart 1 tab Q6HP PRN PO 04/13/25 11:00 04/14/25 06:54 1 TAB Acetaminophen/ Hydrocodone Bitart 1 tab Q6HPRN PRN PO 04/13/25 11:00 Lorazepam 2 mg ONCE PRN IV 04/15/25 18:45 Bupropion HCl 150 mg DAILY PO 04/16/25 10:00 04/16/25 09:26 150 MG Laboratory Results Laboratory Tests 04/15/25 06:10 Urinalysis Test 04/11/25 06:00 Urine Color Light-yellow (Yellow) Urine Clarity Clear (Clear) Urine pH 6.5 (5.0-9.0) Urine Specific [place] 1.016 (1.001-1.035) Urine Protein Negative (Negative) Urine Ketones Trace (Negative) Urine Blood Negative /uL (Negative) Urine Nitrite Negative (Negative) Urine Bilirubin Negative (Negative) Urine Urobilinogen Normal mg/dL (Negative) Urine Leukocyte Esterase Negative /uL (Negative) Urine RBC 2 /hpf (0 - 3) Urine Microscopic WBC 1 /HPF (0-3) Urine Squamous Epithelial Cells Few /hpf (<5) Urine Bacteria None seen /hpf (None Seen) Urine Glucose Normal mg/dL (Normal) Microbiology Microbiology Date/Time Source Procedure Growth Status 04/13/25 10:12 Gallbladder Fluid Gram Stain - Final Resulted 04/13/25 10:12 Gallbladder Fluid Anaerobic Culture - Preliminary Resulted 04/13/25 10:12 Aerobic Culture - Final Klebsiella pneumoniae Resulted 04/10/25 17:04 Blood Blood Culture - Final NO GROWTH AFTER 5 DAYS OF INCUBATION. Complete Labs and/or images reviewed: Labs reviewed by me Assessment/Plan Assessment/Plan # acute cholecystitis, status post cholecystectomy. # ileus per [facility] # acute abdominal pain likely due to large to burden throughout the colon # diarrhea * Ultrasound gallbladder ordered * NPO * IV fluid * Rocephin, Zosyn # Polysubstance abuse * Counseled # hx of Depression * continue # homelessness * consider transition social worker consult * Continuing current management. DW surgeon, Dr Hubbard, patient had gangrenous gallbladder. Continue current antibiotic and closely follow up with labs. Continuing current management. Per surgeon the patient needs four days on IV antibiotics Zosyn. So we will continuing IV antibiotics for now. Continuing with pain medication. Encouraged the patient to be out of bed and ambulate. Advance diet per surgeon. Discharge planning. This medical document was created using an electronic medical record system with [employer] direct computerized dictation system. Although this document has been carefully reviewed, there may still be some phonetic and typographical errors. These areas are purely typographical due to imperfections of the software programs, and do not reflect any compromise in the patient's medical care. Plan discussed with: Patient Date of Service: Apr 16, 2025 Billing Provider: FABIO VALENTIN MD Common Visit Codes: [id number] INP/OBS CARE(HIGH) FABIO VALENTIN MD Apr 16, 2025 09:50
--- NOTE | 2025-04-16 10:34 | DVHPN2 ---
Progress Note - Surgical Date Seen: Apr 16, 2025 Post op day Post op day: 3 Subjective Patient reports: Feels better (Patient is feeling better, some soreness in the right upper quadrant, feels less distended, has not ambulated, tolerating clear liquid diet without any nausea or vomiting.He is afebrile with vital signs stable. Overnight patient wanted to leave AMA and had to be restrained, due to him being combative.) Review of Systems: Not Done Objective Vital signs Vital Sign Date Time Temp Pulse Resp B/P (MAP) Pulse Ox O2 Delivery O2 Flow Rate FiO2 04/16/25 09:00 97.9 67 18 100/70 (80) 97 97.9 04/15/25 20:00 Room Air* 0 21 Total Intake and Output 04/15/25 04/15/25 04/16/25 15:00 23:00 07:00 Intake Total 620 ml 300 ml Output Total 2650 ml Balance -2030 ml 300 ml Medications Current Medications Medications Dose Ordered Sig/Lorraine Route Start Time Stop Time Status Last Admin Dose Admin Ceftriaxone Sodium 50 ml @ 100 mls/hr DAILY@09 IV 04/10/25 17:30 Hold Sodium Chloride 1,000 ml @ 100 mls/hr Q10H IV 04/10/25 17:30 04/15/25 17:53 100 MLS/HR Ondansetron HCl 4 mg Q4HP PRN IV 04/10/25 17:30 04/14/25 14:04 4 MG Acetaminophen 650 mg Q6HP PRN PO 04/10/25 17:30 Morphine Sulfate 2 mg Q4HPRN PRN IV 04/10/25 17:30 04/14/25 12:20 2 MG Piperacillin Sod/ Tazobactam Sod 100 ml @ 25 mls/hr Q6HR IV 04/11/25 02:30 04/16/25 06:03 25 MLS/HR Acetaminophen/ Hydrocodone Bitart 1 tab Q6HP PRN PO 04/13/25 11:00 04/14/25 06:54 1 TAB Acetaminophen/ Hydrocodone Bitart 1 tab Q6HPRN PRN PO 04/13/25 11:00 Lorazepam 2 mg ONCE PRN IV 04/15/25 18:45 Bupropion HCl 150 mg DAILY PO 04/16/25 10:00 04/16/25 09:26 150 MG Laboratory Laboratory Tests 04/15/25 06:10 Test 04/15/25 06:10 Range/Units Serum Glucose 128 H 74-106 mg/dL Microbiology Date/Time Source Procedure Growth Status 04/13/25 10:12 Gallbladder Fluid Gram Stain - Final Resulted 04/13/25 10:12 Gallbladder Fluid Anaerobic Culture - Preliminary Resulted 04/13/25 10:12 Aerobic Culture - Final Klebsiella pneumoniae Resulted 04/10/25 17:04 Blood Blood Culture - Final NO GROWTH AFTER 5 DAYS OF INCUBATION. Complete Examination: GENERAL:Normal, HEENT:Normal (No icterus), ABDOMEN:Abnormal (Very minimal distention, soft, depressible, incision sites with Steri-Strips in place, incision sites without: erythema, edema, pus, drainage. Mild right upper quadrant tenderness, no rebound, no guarding. Drain put out 130 mL yesterday, today has about 70 mL of seropurulent drainage) Problem List/Assessment/Plan Assessment and Plan 45 yo M who presented with acute gangrenous cholecystitis, with pus, currently POD 3 from [facility]. Due to his pathology on presentation he is at high risk of developing an intra-abdominal abscess despite surgical gallbladder removal. Patient has ileus appears to have resolved, he had 2 bowel movements yesterday. This morning abdomen is less distended, less tender. Drain put out 75 from 130 mL of seropurulent material. Patient will continue to benefit from inpatient care with IV antibiotics. -Continue ABX for 4 days post surgery: Recommend Zosyn while in hospital -Drain care: BID stripping and PRN draining -Needs to ambulate at least TID -No PO motility agents -advance diet to low-fat -continue with pain and nausea control My Orders My Orders Orders - ALFREDO SANDHU MD Procedure Category Date Status Time Complete Blood Count LAB 04/17/25 Verified 04:00 Comprehensive LAB 04/17/25 Verified Metabolic Panel 04:00 Bilirubin, Direct LAB 04/17/25 Verified 04:00 Cardiac DIET 04/16/25 Transmitted Diet-2gna,Lofat,Lochol Lunch Plan discussed with Plan discussed with: Patient Visit Coding Surgery Date of Service if different f: Apr 16, 2025 Billing Provider: ALFREDO SANDHU MD Surgery Visit Codes: [id number] INP/OBS CARE(HIGH) ALFREDO SANDHU MD Apr 16, 2025 10:34
[2025-04-17 01:00] VITALS: BP 119/82; PULSE 87; RESP 17; TEMP 97.5; O2SAT 99
[2025-04-17] MEDS: HYDROcodone-ACET 5/325MG TAB PO PRN (01:11)
[2025-04-17 05:00] VITALS: BP 112/75; PULSE 82; RESP 19; TEMP 98.3; O2SAT 94
[2025-04-17 07:24] LABS: Hematocrit 38.7 % (41.0-53.0); Hemoglobin 13.7 g/dL (13.5-17.5); Mean Corpuscular Hemoglobin 31.3 pg (28.0-32.0); Mean Corpuscular Volume 88.5 fL (80.0-100.0); Nucleated Red Blood Cells % 0.1 %
[2025-04-17 07:43] LABS: Albumin 3.7 g/dL (3.2-4.8); Alkaline Phosphatase 83 U/L (46-116); Anion Gap 9 (5-15); BUN/Creatinine Ratio 16.7 (10.0-20.0); Blood Urea Nitrogen 12 mg/dL (9-23); Calcium 8.7 mg/dL (8.7-10.4); Carbon Dioxide 27 mmol/L (20-31); Chloride 101 mmol/L (98-107); Potassium 3.9 mmol/L (3.5-5.1); Sodium 137 mmol/L (136-145); Total Protein 6.5 g/dL (5.7-8.2)
[2025-04-17 07:44] LABS: Bilirubin, Direct 0.1 mg/dL (<0.3)
[2025-04-17 07:51] LABS: Alanine Aminotransferase 57 U/L (7-40); Bilirubin, Total 0.3 mg/dL (0.2-1.0); Glucose 114 mg/dL (74-106)
[2025-04-17 08:00] VITALS: PULSE 67; RESP 18; O2SAT 98
[2025-04-17 09:00] VITALS: BP 113/76; PULSE 75; RESP 20; TEMP 99; O2SAT 97
[2025-04-17] MEDS ORDERED: HYDR-4902 PO (10:57)
[2025-04-17] MEDS ORDERED: AUG875T PO (10:57)
--- NOTE | 2025-04-17 11:00 | DVHPN2 ---
Progress Note - Surgical Date Seen: Apr 17, 2025 Post op day Post op day: 4 Subjective Patient reports: Feels better (Patient is looking great this morning, he wants to go home, tolerating low-fat diet, passing flatus, having bowel movement, he is afebrile with vital signs stable.) Review of Systems: Not Done Objective Vital signs Vital Sign Date Time Temp Pulse Resp B/P (MAP) Pulse Ox O2 Delivery O2 Flow Rate FiO2 04/17/25 09:00 99.0 75 20 113/76 (88) 97 99.0 04/17/25 08:00 Room Air* 0 21 Total Intake and Output 04/16/25 04/16/25 04/17/25 15:00 23:00 07:00 Intake Total 100 ml 1296 ml 1300 ml Output Total 65 ml 20 ml Balance 35 ml 1296 ml 1280 ml Medications Current Medications Medications Dose Ordered Sig/Lorraine Route Start Time Stop Time Status Last Admin Dose Admin Ceftriaxone Sodium 50 ml @ 100 mls/hr DAILY@09 IV 04/10/25 17:30 Hold Sodium Chloride 1,000 ml @ 100 mls/hr Q10H IV 04/10/25 17:30 04/15/25 17:53 100 MLS/HR Ondansetron HCl 4 mg Q4HP PRN IV 04/10/25 17:30 04/14/25 14:04 4 MG Acetaminophen 650 mg Q6HP PRN PO 04/10/25 17:30 Morphine Sulfate 2 mg Q4HPRN PRN IV 04/10/25 17:30 04/14/25 12:20 2 MG Piperacillin Sod/ Tazobactam Sod 100 ml @ 25 mls/hr Q6HR IV 04/11/25 02:30 04/17/25 05:31 25 MLS/HR Acetaminophen/ Hydrocodone Bitart 1 tab Q6HP PRN PO 04/13/25 11:00 04/14/25 06:54 1 TAB Acetaminophen/ Hydrocodone Bitart 1 tab Q6HPRN PRN PO 04/13/25 11:00 04/17/25 01:11 1 TAB Lorazepam 2 mg ONCE PRN IV 04/15/25 18:45 Bupropion HCl 150 mg DAILY PO 04/16/25 10:00 04/17/25 08:57 150 MG Laboratory Laboratory Tests 04/17/25 06:22 Test 04/17/25 06:22 Range/Units Serum Glucose 114 H 74-106 mg/dL Microbiology Date/Time Source Procedure Growth Status 04/13/25 10:12 Gallbladder Fluid Gram Stain - Final Resulted 04/13/25 10:12 Gallbladder Fluid Anaerobic Culture - Preliminary Resulted 04/13/25 10:12 Aerobic Culture - Final Klebsiella pneumoniae Resulted 04/10/25 17:04 Blood Blood Culture - Final NO GROWTH AFTER 5 DAYS OF INCUBATION. Complete Examination: GENERAL:Normal, HEENT:Normal (No icterus), ABDOMEN:Normal (Nondistended, incision sites with Steri-Strips in place, drain at right upper quadrant with minimal serosanguineous output approximately 15-20 mL, soft, depressible, nontender) Labs and/or images reviewed: Labs reviewed by me (No leukocytosis, no liver function elevation) Problem List/Assessment/Plan Assessment and Plan 45 yo M who presented with acute gangrenous cholecystitis, with pus, currently POD 4 from [facility]. Due to his pathology on presentation he is at high risk of developing an intra-abdominal abscess despite surgical gallbladder removal. Drain output is significantly less today approximately 15-20 mL of serosanguineous fluid. Culture came back sensitive for Klebsiella pneumoniae which is sensitive to Zosyn. Given that the patient condition is significantly improved, tolerating diet, having bowel movements, and has been on IV antibiotics for 4 days following source control, patient is cleared to go home per surgical standpoint. Patient will need to be discharged with the drain. -cleared for discharge -please allow the patient to receive his noon dose of Zosyn, and discharge with 1 day of p.o. Augmentin 875mg b.i.d. -please teach patient on drain care at home. Drain care: BID stripping and PRN draining. Please keep a log of drain output quantity. -discharge diet: low-fat -patient will need to follow up at the surgery clinic in 1 week post discharge, with Dr. Hubbard. Plan discussed with Plan discussed with: Patient Visit Coding Surgery Date of Service if different f: Apr 17, 2025 Billing Provider: ALFREDO SANDHU MD Surgery Visit Codes: [id number] INP/OBS CARE(HIGH) ALFREDO SANDHU MD Apr 17, 2025 11:00
--- NOTE | 2025-04-17 11:01 | DVHDS2 ---
Discharge Summary Date of Admission Apr 10, 2025 at 17:20 Date of Discharge: Apr 17, 2025 Admitting Diagnosis # acute cholecystitis, status post cholecystectomy. # ileus per [facility] # acute abdominal pain likely due to large to burden throughout the colon # diarrhea # Polysubstance abuse # hx of Depression # homelessness Labs/Diagnostic Data: Laboratory Results Test 04/17/25 06:22 04/15/25 15:20 04/11/25 17:00 04/11/25 06:00 White Blood Count 8.9 10^3/uL (4.4-10.8) Red Blood Count 4.38 10^6/uL (4.5-5.90) Hemoglobin 13.7 g/dL (13.5-17.5) Hematocrit 38.7 % (41.0-53.0) Mean Corpuscular Volume 88.5 fL (80.0-100.0) Mean Corpuscular Hemoglobin 31.3 pg (28.0-32.0) Mean Corpuscular Hemoglobin Concent 35.4 g/dL (32.0-36.0) Red Cell Distribution Width 12.8 % (11.8-14.3) Platelet Count 377 10^3/uL (140-450) Mean Platelet Volume 8.7 fL (6.9-10.8) Neutrophils (%) (Auto) 65.4 % (37.0-80.0) Lymphocytes (%) (Auto) 21.2 % (10.0-50.0) Monocytes (%) (Auto) 10.6 % (0.0-12.0) Eosinophils (%) (Auto) 2.4 % (0.0-7.0) Basophils (%) (Auto) 0.4 % (0.0-2.0) Neutrophils # (Auto) 5.8 10 ^3/uL (1.6-8.6) Lymphocytes # (Auto) 1.9 10 ^3/uL (0.4-5.4) Monocytes # (Auto) 0.9 10 ^3/uL (0-1.3) Eosinophils # (Auto) 0.2 10 ^3/uL (0-0.8) Basophils # (Auto) 0 10 ^3/uL (0-0.2) Nucleated Red Blood Cells 0.1 % Sodium Level 137 mmol/L (136-145) Potassium Level 3.9 mmol/L (3.5-5.1) Chloride Level 101 mmol/L (98-107) Carbon Dioxide Level 27 mmol/L (20-31) Anion Gap 9 (5-15) Blood Urea Nitrogen 12 mg/dL (9-23) Creatinine 0.72 mg/dL (0.700-1.30) Glomerular Filtration Rate Calc 116 mL/min (>90) BUN/Creatinine Ratio 16.7 (10.0-20.0) Serum Glucose 114 mg/dL (74-106) Calcium Level 8.7 mg/dL (8.7-10.4) Total Bilirubin 0.3 mg/dL (0.2-1.0) Direct Bilirubin 0.1 mg/dL (<0.3) Aspartate Amino Transferase (AST) 30 U/L (13-40) Alanine Aminotransferase (ALT) 57 U/L (7-40) Alkaline Phosphatase 83 U/L (46-116) Total Protein 6.5 g/dL (5.7-8.2) Albumin 3.7 g/dL (3.2-4.8) Urine Opiates Screen Neg (NEGATIVE) Urine Fentanyl Screen Neg (NEGATIVE) Urine Barbiturates Screen Neg (NEGATIVE) Urine Phencyclidine Screen Neg (NEGATIVE) Urine Amphetamines Screen Neg (NEGATIVE) Urine Benzodiazepines Screen Neg (NEGATIVE) Urine Cocaine Screen Neg (NEGATIVE) Urine Cannabinoids Screen Neg (NEGATIVE) Prothrombin Time 12.1 sec (9.3-11.8) Prothrombin Time INR 1.16 (0.9-1.15) Activated Partial Thromboplast Time 33.7 SEC (24.5-34.5) Urine Color Light-yellow (Yellow) Urine Clarity Clear (Clear) Urine pH 6.5 (5.0-9.0) Urine Specific [place] 1.016 (1.001-1.035) Urine Protein Negative (Negative) Urine Ketones Trace (Negative) Urine Blood Negative /uL (Negative) Urine Nitrite Negative (Negative) Urine Bilirubin Negative (Negative) Urine Urobilinogen Normal mg/dL (Negative) Urine Leukocyte Esterase Negative /uL (Negative) Urine RBC 2 /hpf (0 - 3) Urine Microscopic WBC 1 /HPF (0-3) Urine Squamous Epithelial Cells Few /hpf (<5) Urine Bacteria None seen /hpf (None Seen) Urine Glucose Normal mg/dL (Normal) Test 04/11/25 04:54 04/10/25 17:04 04/10/25 15:07 Hepatitis B Surface Antigen Negative (Negative) Hepatitis C Antibody Negative (Negative) Lactic Acid Level 0.8 mmol/L (0.4-2.0) Lipase 23 U/L (12-53) Other Laboratory Tests 04/17/25 06:22 Brief Hx & Hospital Course: This is a 45 years old male with past medical history depression, tobacco use, amphetamine abuse and homelessness come to emergency department because severe abdominal pain. The patient pain associated with nausea and vomiting and diarrhea for two days. The patient said he had gallstone in the past. CT scan abdomen pelvis showed large stool burden throughout the colon and thickening of gallbladder wall with mild distended pericholecystic fluid and goal bladder wall thickness measuring 5 mm. Subsequently the patient had ultrasound done showed acute cholecystitis. Surgeon was consulted and the patient had cholecystectomy. Per Dr. Hubbard, surgeon the gallbladder was gangrenous and he had to clean up a lot of pus. The patient was on IV antibiotics Zosyn and he wanted to continuing the patient on IV antibiotic for a list four days. Today the patient ambulate. The patient tolerate food. The patient did not have nausea and vomiting or diarrhea. No fever or chill. I am going to discharge the patient home. Advised the patient to follow up with primary care physician 1-2 weeks. Follow up with surgeon, Per rest per schedule. Activity as tolerated. Diet per home diet. Per patient he not homelessness and he lives with his family. We will be discharged to home Physical exam: HEENT: Normocephalic atraumatic pupils equal react to light and accommodation. Extraocular muscles intact, conjunctiva pink, oropharynx moist, no thrush, no exudate. Lymphatic: No lymphadenopathy Cardiovascular exam: S1, S2 was heard. No murmurs, rubs, gallops Lung: Clear on auscultation bilaterally, no wheeze, rale, rhonchi. GI: Abdominal soft, nondistended, nontenderness, positive bowel sounds. Extremity: No crepitus, cyanosis, edema. Pedal pulses present bilateral. Full range of motion. Skin: Normal turgor, no rash. Psych: Alert, oriented x3. Neurology: No focal deficits, cranial nerve II to XII grossly intact. This medical document was created using an electronic medical record system with [employer] computerized dictation system. Although this document has been carefully reviewed, there may still be some phonetic and typographical errors. These areas are purely typographical due to imperfections of the software programs, and do not reflect any compromise in the patient's medical care. Condition at Discharge: Stable Final Diagnosis/Problems List # acute gangrenous cholecystitis, status post cholecystectomy. # ileus per [facility] # acute abdominal pain likely due to large to burden throughout the colon # diarrhea # Polysubstance abuse # hx of Depression Discharge Disposition: Home Discharge Instruct/Medications Diet: Regular Activity: No Restrictions, As Tolerated Activity comment: do not hold any object more than 10 lbs for 2 weeks. Follow Up/Referral: pcp 1-2 weeks surgeon, Dr Hubbard per schedule Medications: see med list Augmentin 875/125 PO bid x 10 days [place] 5/325 one tab q 6prn Scheduled Amoxicillin & Pot Clavulanate (Augmentin Tablet), 875 MG PO BID Bupropion Hcl (Bupropion Hcl Xl), 1 TAB PO QAM, (Reported) Hydrocodone-Acetaminophen (Hydrocodone Bitartrate/AC 5-325 mg), 1 TAB PO Q6HR Discharge Statement: "Patient was advised to return to the ER or call 911 if any headaches, dizziness, shortness of breath, chest pain, abdominal pain, bleeding, fevers, or worsening of medical condition. Patient was counseled about treatment plan, medications, possible side effects, patientverbalized understanding. All questions were answered to the best of my ability. This discharge took greater then 30 minutes in planning, reviewing documentation, counseling the patient, and discussing with other team members." ASSESSMENT ASSESSMENT Assessment Acute gangrenous cholecystitis Date of Service: Apr 17, 2025 Billing Provider: FABIO VALENTIN MD Common Visit Codes: [id number] DISCH DAY >30min FABIO VALENTIN MD Apr 17, 2025 11:01
[2025-04-17 13:00] VITALS: BP 108/74; PULSE 74; RESP 17; TEMP 98.5; O2SAT 100
[2025-04-17 17:00] VITALS: BP 122/75; PULSE 79; RESP 18; TEMP 97.7; O2SAT 99
== END 2025-04-17 17:59 | disposition home or self-care (01) | DRG 418 ==
LOC: EDUNIT# 14:03 → EDBD 14:03 → ER 14:03 → OVERFLOW 17:20 → CENTRAL 04-11 23:47
PROVIDERS: ADMIT Internal Medicine; ATTEND Internal Medicine
PROC: 0FT44ZZ Resection of Gallbladder, Percutaneous Endoscopic Approach (ICD-10-PCS; principal; 2025-04-13 07:29)
DX: K80.00 Calculus of gallbladder with acute cholecystitis without obstruction (principal); K56.7 Ileus, unspecified; Z59.00 Homelessness unspecified; K82.A1 Gangrene of gallbladder in cholecystitis; K82.8 Other specified diseases of gallbladder; N20.0 Calculus of kidney; K42.9 Umbilical hernia without obstruction or gangrene; F17.210 Nicotine dependence, cigarettes, uncomplicated; F32.A Depression, unspecified; F19.10 Other psychoactive substance abuse, uncomplicated; Z79.899 Other long term (current) drug therapy
CPT/HCPCS: 36415; 71045; 74018; 74176; 76705; 78226; 80053; 80307; 81001; 82248; 83605; 83690; 85025; 85610; 85730; 86803; 86850; 86900; 86901; 87040; 87070; 87075; 87077; 87186; 87205; 87340; 93005; 96361; 96374; G0378; J0131; J0330; J0694; J1100; J2003; J2250; J2405; J2543; J2704; J3490

== ENCOUNTER 2025-04-22 12:18 | Emergency (ER) | payer MEDICARE, MEDICAID ==
[~2025-04-22] VITALS: Ht 175.3 cm; Wt 72.8 kg
[~2025-04-22 12:18] MED LIST: AUG875T PO; BUPR150T18 PO; HYDR-4902 PO
--- NOTE | 2025-04-22 13:20 | ED.PDOC ---
History of Present Illness HPI Comments A 45 YEAR OLD MALE PRESENTS TO THE ED WITH AN EVALUATION OF A POSSIBLE DEEPTHI TUBE REMOVAL. PATIENT REPORTS UNDERGOING CHOLECYSTECTOMY AROUND 04/17/25 AND IS HERE TO REMOVE DEEPTHI TUBE IN WHICH WAS EMPHASIZED TO HIM WE CANNOT TAKE OUT AND THAT HE WILL HAVE TO F/U WITH PCP FOR FURTHER INTERVENTION. PATIENT IS REQUESTING PAIN MEDICATION DUE TO ABDOMINAL PAIN. PATIENT DENIES FEVER, CHILLS, SHORTNESS OF BREATH, CHEST PAIN, NAUSEA, VOMITING, HEADACHE, OR OTHER COMPLAINTS. NO OTHER SYMPTOMS OR MODIFYING FACTORS AT THIS TIME. PATIENT IS ALERT, ORIENTED X 4, AND HAS STEADY GAIT. Chief Complaint: Tube Replacement Time Seen by MD: 13:10 Primary Care Provider: carlo Clayton Notes: Nurses Notes, Medications, Allergies Allergies: Coded Allergies: NO KNOWN ALLERGIES (Unverified , 06/26/18) Home Meds Active Scripts Hydrocodone-Acetaminophen (Hydrocodone Bitartrate/AC 5-325 mg) 1 Tab Tab, 1 TAB PO Q6HR, #20 TAB Prov:FABIO VALENTIN MD 04/17/25 Amoxicillin & Pot Clavulanate (AUGMENTIN TABLET) 875 Mg Tb, 875 MG PO BID, #20 TAB Prov:FABIO VALENTIN MD 04/17/25 Reported Medications Bupropion Hcl (Bupropion Hcl Xl) 150 Mg Tab, 1 TAB PO QAM 04/10/25 Information Source: Patient Mode of Arrival: Ambulatory Severity: Mild Duration: Since onset Medication Refill: For: Other (REQUESTS DEEPTHI TUBE REMOVAL ) Past Medical History PAST MEDICAL HISTORY: Depression Surgical History: Cholecystectomy, Denies all surgeries Family History Family History: Unknown Social History Smoker: Cigarettes, Less Than 1 Pack/Day Alcohol: Heavy Drugs: Marijuana, Methamphetamine Lives In: Home Constitutional: denies: chills, diaphoresis, fatigue, fever, malaise, sweats, weakness, others EENTM: denies: blurred vision, double vision, ear bleeding, ear discharge, ear drainage, ear pain, ear ringing, eye pain, eye redness, hearing loss, mouth pain, mouth swelling, nasal discharge, nose bleeding, nose congestion, nose pain, photophobia, tearing, throat pain, throat swelling, voice changes, others Respiratory: denies: cough, hemoptysis, orthopnea, SOB at rest, shortness of breath, SOB with excertion, stridor, wheezing, others Cardiovascular: denies: chest pain, dizzy spells, diaphoresis, Dyspnea on exertion, edema, irregular heart beat, left arm pain, lightheadedness, palpitations, PND, syncope, others Gastrointestinal: denies: abdomen distended, abdominal pain, blood streaked bowels, constipated, diarrhea, dysphagia, difficulty swallowing, hematemesis, melena, nausea, poor appetite, poor fluid intake, rectal bleeding, rectal pain, vomiting, others Genitourinary: denies: burning, dysuria, flank pain, frequency, hematuria, incontinence, penile discharge, penile sore, pain, testicle pain, testicle swelling, urgency, others Neurological: denies: dizziness, fainting, headache, left sided numbness, left sided weakness, numbness, paresthesia, pre-existing deficit, right sided numbness, right sided weakness, seizure, speech problems, tingling, tremors, weakness, others Musculoskeletal: denies: back pain, gout, joint pain, joint swelling, muscle pain, muscle stiffness, neck pain, others Integumetry: denies: bruises, change in color, change in hair/nails, dryness, laceration, lesions, lumps, rash, wounds, others Allergic/Immunocompromised: denies: Difficulty Healing, Frequent Infections, Hives, Itching, others Hematologic/Lymphatic: denies: anemia, blood clots, easy bleeding, easy bruising, swollen glands, others Endocrine: denies: excessive hunger, excessive sweating, excessive thirst, excessive urination, flushing, intolerance to cold, intolerance to heat, unexplained weight gain, unexplained weight loss, others Psychiatric: denies: anxiety, bipolar disorder, depression, hopeless, panic disorder, schizophrenia, sleepless, suicidal, others All Other Systems: Reviewed and Negative Physical Exam General Appearance: No Apparent Distress, Normal HEENT: Normal ENT Inspection, PERRL/EOMI, Pharynx Normal, TMs Normal Neck: Full Range of Motion, Non-Tender, Normal, Normal Inspection Respiratory: Chest Non-Tender, Lungs Clear, No Accessory Muscle Use, No Respiratory Distress, Normal Breath Sounds Cardiovascular: No Edema, No JVD, No Murmur, No Gallop, Normal Peripheral Pulses, Regular Rate/Rhythm Breast Exam: Deferred Gastrointestinal: No Organomegaly, Non Tender, No Pulsatile Mass, Normal Bowel Sounds, Soft, Other (DEEPTHI TUBE ON RIGHT SIDE MIDDLE ABD WALL INTACT AND ACTIVELY DRAINING. ) Genitalia: Deferred Pelvic: Deferred Rectal: Deferred Extremities: No calf tenderness, Normal capillary refill, Normal inspection, Normal range of motion, Non-tender, No pedal edema Musculoskeletal : Apperance: Normal Neurologic: Alert, speech clinician II-XII nml as Tested, No Motor Deficits, Normal Affect, Normal Mood, No Sensory Deficits Cerebellar Function: Normal Reflexes: Normal Skin: Dry, Normal Color, Warm Peripheral Pulses: 2+ carotid (R), 2+ carotid (L) Lymphatic: No Adenopathy Was a procedure done? Was a procedure done?: No Differential Dx Considerations may include: REQUESTS SAMMY TUBE REMOVAL X-Ray, Labs, Meds, VS Vital Signs Date Time Temp Pulse Resp B/P (MAP) Pulse Ox O2 Delivery O2 Flow Rate FiO2 04/22/25 12:27 98.6 95 16 119/59 100 98.6 Current Medications Medications (Trade) Dose Ordered Sig/Lorraine Route Start Time Stop Time Status Last Admin Acetaminophen/ Hydrocodone Bitart ([place] 5/325MG Tab) 1 tab ONCE ONCE PO 04/22/25 13:15 04/22/25 13:17 DC 04/22/25 13:39 X-Ray, Labs, Meds, VS Comment EXTERNAL MEDICAL RECORDS REVIEWED: [NONE] INDEPENDENT HISTORIANS: [NONE] SOCIAL DETERMINANTS OF HEALTH: [NONE] LABS ORDERED: NONE REVIEWED AND INTERPRETED RESULTS: NONE IMAGING ORDERED: NONE TREATMENTS ORDERED: [place] 5/325MG PO PROCEDURES PERFORMED: NONE CRITICAL CARE TIME: NONE I HAVE DISCUSSED THE PATIENT WITH THE ATTENDING PHYSICIAN, . HE AGREES WITH THE PATIENT'S PLAN OF CARE AND DISPOSITION. BASED ON HISTORY OF PRESENT ILLNESS, AND PHYSICAL EXAM, PATIENT WILL BE DISCHARGED HOME. SHARED DECISION MAKING: DISCUSSED WITH PATIENT THAT THEIR WORKUP WAS NORMAL. PATIENT INSTRUCTED TO FOLLOW UP WITH PRIMARY CARE PROVIDER IN 1-2 DAYS FOR RE- EVALUATION OF SYMPTOMS. PATIENT VERBALIZES UNDERSTANDING TO RETURN TO ED FOR NEW OR WORSENING SYMPTOMS OR IF FOLLOW UP WITH PCP CANNOT BE OBTAINED. PATIENT FEELS COMFORTABLE GOING HOME AT THIS TIME. ALL QUESTIONS ADDRESSED AT TIME OF DISCHARGE. Time of 1ST Reevaluation: 14:02 Reevaluation 1ST: Unchanged Patient Education/Counseling: Diagnosis, Treatment, Prognosis Family Education/Counseling: Diagnosis, Treatment, No Family Present Medical Screening: No EMC Exist At This Time SEPSIS Sepsis Screen Date sepsis recognized/suspect: Apr 22, 2025 Time Sepsis recognized/suspect: 1231 Recent Procedure: No On Antibiotic Therapy: No Respiratory Rate >20: No Heart Rate >90: No Temp<36 C (96.8 F) or >38.3 C: No SBP <90 or MAP <65 mmHG: No New Acute Mental Status Change: No Is the patient on CPAP, BIPAP,: No Vital Signs Date Time Temp Pulse Resp B/P (MAP) Pulse Ox O2 Delivery O2 Flow Rate FiO2 04/22/25 12:27 98.6 95 16 119/59 100 98.6 Medications Medications Dose Ordered Sig/[place] Route Start Time Stop Time Status Last Admin Dose Admin Acetaminophen/ Hydrocodone Bitart 1 tab ONCE ONCE PO 04/22/25 13:15 04/22/25 13:17 DC 04/22/25 13:39 Departure 1 Departure Time of Disposition: 14:02 Impression: Primary Impression: Encounter for wound re-check Disposition: HOME / SELF CARE / HOMELESS Condition: Stable Additional Instructions: FOLLOW-UP WITH PCP IN 1 TO 2 DAYS FOR POST OPERATION/ CHOLECYSTOMY . TAKE MEDICATIONS PRESCRIBED. RETURN TO ED FOR ANY NEW OR WORSENING SYMPTOMS. Discharged With: Self Critical Care Note Critical Care Time?: No Stability Stability form required: No I personally scribed for IBIS ANAYA ([email or web address]) on 04/22/25 at 13:19. Electronically submitted by Suni Hayden ([facility]). IBIS ANAYA Apr 22, 2025 13:19
[2025-04-22] MEDS: HYDROcodone-ACET 5/325MG TAB PO ONE ×2 (13:37→13:39)
[2025-04-22 14:14] VITALS: BP 119/59; PULSE 95; RESP 16; TEMP 98.6; O2SAT 100
== END 2025-04-22 14:10 | disposition home or self-care (01) ==
LOC: ER 12:18
DX: Z48.00 Encounter for change or removal of nonsurgical wound dressing (principal); Z90.49 Acquired absence of other specified parts of digestive tract; Z79.899 Other long term (current) drug therapy